=== PATIENT | male | born 1985 | race Caucasian/White ===

== ENCOUNTER 2021-12-18 00:38 | Emergency (ER) | payer OTHER, SELFPAY ==
[2021-12-18 00:40] VITALS: BP 141/91; PULSE 96; RESP 20; TEMP 36.9; O2SAT 97; BMI 28.0
--- NOTE | 2021-12-18 00:53 | ED.SKABFB ---
HPI - Skin/Abscess/Foreign Bdy General Chief complaint: Skin/Abscess/Foreign Body Stated complaint: fever, abscess Time Seen by Provider: 12/18/21 00:51 Source: patient Mode of arrival: ambulatory Limitations: no limitations History of Present Illness MD complaint: rash Onset (ago): day(s) (4) Location: LUE Severity: moderate Quality: aching Pain Consistency: constant Relieving factors: none Exacerbating factors: palpation and movement Context: IVDA Associated symptoms: chills Treatments prior to arrival: none Related Data Previous Rx's Medication Instructions Recorded cephalexin 500 mg capsule 500 mg PO TID 7 Days #21 cap 12/18/21 doxycycline monohydrate 100 mg 100 mg PO BID 7 Days #14 tab 12/18/21 tablet Allergies Allergy/AdvReac Type Severity Reaction Status Date / Time haloperidol [From Haldol] Allergy Unknown Unknown Verified 12/18/21 01:07 Review of Systems Review of Systems: Constitutional : No Fever, pos Chills ENT/Mouth : No sore throat, No Rhinorrhea Eyes: No Eye Pain, No Swelling, No Redness Cardiovascular : No Chest Pain, No SOB Respiratory : No Cough, No Sputum Gastrointestinal : No Nausea, No Vomiting, No Diarrhea, No abdominal Pain Genitourinary : No Dysuria, No Hematuria Musculoskeletal : No joint pain, No Myalgias, No Joint Swelling Skin : No Skin Lesions, positive skin rash Neuro : No Weakness, No Numbness, No Headache Psych : No Anxiety, No Depression Heme/Lymph: No Bruising, No Bleeding,No Lymphadenopathy Endocrine : No Polyuria, No Polydipsia All other systems reviewed and are negative [facility] Past Medical History Attestation statement: The following information was validated with the patient. Medical History Cellulitis Hepatitis C Opiate abuse, continuous Social History Social History (Updated 12/18/21 @ 01:11 by Marge Zacarias DO) Patient Tobacco Use Status: Current someday Tobacco user Substance Use Type: Heroin Advance Directives: No Physical Exam Vital Signs: Vital Signs: Last Vital Signs Temp 98.5 F 12/18/21 00:40 Pulse 96 12/18/21 00:40 Resp 20 12/18/21 00:40 BP 141/91 H 12/18/21 00:40 Pulse Ox 97 12/18/21 00:40 BMI result Body Mass Index 28.0 Appearance: Alert. Oriented X3. No acute distress. Eyes: Pupils equal, round and reactive to light. ENT: Pharynx normal. Neck: Normal inspection. Neck supple. CVS: Normal heart rate and rhythm. Pulses normal. Respiratory: No respiratory distress. Breath sounds normal. Abdomen: Soft and nontender. Skin: Skin warm and dry. Normal skin color. Normal skin turgor. Extremities: No lower extremity edema. LUE erythema and warmth posterior aspect no fluctuance felt no abscess noted distal NV intact, no drainage, no streaking, full ROM of elbow joint Neuro: Oriented X 3. No motor deficit. No sensory deficit. Course Course Course Narrative: no WBC count, afebrile, lactic acid negative can trial oral outpatient antibiotics MDM - Skin/Abscess/Foreign Bdy MDM Narrative Medical decision making narrative: 36 yo male with LUE cellulitis post IVDA - no signs of abscess not toxic, distal NV intact, bedside US no abscess seen, full ROM no septic joint he is not systemically toxic will obtain labs and start IV antibiotics anticipate trial at home with oral antibiotics. Lab Data Result diagrams: 12/18/21 01:50 12/18/21 01:50 Labs: Lab Results 12/18/21 12/18/21 12/18/21 Range/Units 01:50 01:50 02:11 WBC 8.7 (4.8-10.8) X10*3/uL RBC 4.94 (4.60-5.80) X10*6/uL Hgb 13.6 L (14.0-18.0) g/dl Hct 40.4 L (42.0-52.0) % MCV 81.8 (80.0-98.0) fL MCH 27.5 (27.0-33.0) pg MCHC 33.7 (31.0-36.0) g/dl RDW 12.8 (11.0-16.0) % Plt Count 329 (160-400) X10*3/uL MPV 9.1 L (9.4-12.4) fL Immature Gran % (Auto) 0.2 (0.0-0.4) % Neut % (Auto) 70.3 (45-73) % Lymph % (Auto) 19.2 L (20-40) % [place] % (Auto) 8.8 (2-11) % Eos % (Auto) 0.9 (0-4) % Baso % (Auto) 0.6 (0-2) % Lymph # (Auto) 1.7 (1.2-4.9) X10*3/uL [place] # (Auto) 0.8 (0.1-1.2) X10*3/uL Eos # (Auto) 0.1 (0.0-0.4) X10*3/uL Baso # (Auto) 0.1 (0.0-0.2) X10*3/uL Abs Immat Gran (auto) 0.02 (0.00-0.03) X10*3/uL Absolute Neuts (auto) 6.1 (2.0-8.3) x10*3/uL Absolute Nucleated RBC 0.000 (0.0-0.012) X10*3/uL Nucleated RBC % (auto) 0.0 (0.0-0.2) /100WBC Lactic Acid 1.3 (0.5-2.0) mmol/L COVID-19 (SUZANNE) Negative (Negative) COVID-19 Clin Com See Note Procedures Procedure Narrative Procedure Narrative: limited bedside ECHO - soft tissue left UE - no abscess seen scanning cellulitic area, cobblestoning noted Discharge Plan Discharge Clinical Impression: Cellulitis Qualifiers: Site of cellulitis: extremity Site of cellulitis of extremity: upper extremity Laterality: left Qualified Code(s): L03.114 - Cellulitis of left upper limb Patient Disposition: Home, Self-Care Instructions: Cellulitis (ED) Additional Instructions: return to ED for any worsening symptoms or concerns monitor for worsening redness, fevers, swelling, or any other concerns, complete all antibiotics Prescriptions: New cephalexin 500 mg capsule 500 mg PO TID 7 Days Qty: 21 0RF doxycycline monohydrate 100 mg tablet 100 mg PO BID 7 Days Qty: 14 0RF
[2021-12-18 01:57] LABS: MANUAL DIFF FLAG NO
[2021-12-18] MEDS: Piperacillin Sodium/Tazobactam 3.375 GM in 0.9 % Sodium Chloride 50 ML IV (01:57)
[2021-12-18] MEDS: oxyCODONE HCl Immed Release 5 MG TABLET 10 MG PO (01:57)
[2021-12-18 02:00] LABS: Basophils Absolute Auto 0.1 X10*3/uL (0.0-0.2); Basophils Percent Auto 0.6 % (0-2); Eosinophils Absolute Auto 0.1 X10*3/uL (0.0-0.4); Eosinophils Percent Auto 0.9 % (0-4); Hematocrit 40.4 % (42.0-52.0); Hemoglobin 13.6 g/dl (14.0-18.0); Imm Gran Abs Auto 0.02 X10*3/uL (0.00-0.03); Imm Gran Pct Auto 0.2 % (0.0-0.4); Lymphocytes Absolute Auto 1.7 X10*3/uL (1.2-4.9); Lymphocytes Percent Auto 19.2 % (20-40); Mean Corpuscular HGB Conc 33.7 g/dl (31.0-36.0); Mean Corpuscular Hemoglobin 27.5 pg (27.0-33.0); Mean Corpuscular Volume 81.8 fL (80.0-98.0); Mean Platelet Volume 9.1 fL (9.4-12.4); Monocytes Absolute Auto 0.8 X10*3/uL (0.1-1.2); Monocytes Percent Auto 8.8 % (2-11); Neutrophils Absolute Auto 6.1 x10*3/uL (2.0-8.3); Neutrophils Percent Auto 70.3 % (45-73); Platelet Count 329 X10*3/uL (160-400); Red Blood Count 4.94 X10*6/uL (4.60-5.80); Red Cell Distribution Width 12.8 % (11.0-16.0); White Blood Count 8.7 X10*3/uL (4.8-10.8)
[2021-12-18] MEDS: vancomycin HCL 1,250 MG in 0.9 % Sodium Chloride 250 ML 166.67 MG IV (02:10)
[2021-12-18 02:15] LABS: COVID-19 Test Negative (Negative)
[2021-12-18 02:30] LABS: Lactic Acid 1.3 mmol/L (0.5-2.0)
[2021-12-18 02:36] LABS: Alanine Aminotransferase 46 U/L (0-40); Albumin Level 3.8 g/dL (3.5-5.0); Alkaline Phosphatase 89 U/L (39-117); Anion Gap 14 (12-20); Aspartate Amino Transferase 34 U/L (5-37); Bilirubin Direct 0.4 mg/dL (0.0-0.5); Blood Urea Nitrogen 12 mg/dL (9-16); Calcium 9.1 mg/dL (8.4-10.2); Carbon Dioxide 23 mmol/L (22-29); Chloride 100 mmol/L (96-108); Creatinine Clr Calc Pharmacy 125.9; Estimated Glomerular Filt Rate > 60; Glucose Random 102 mg/dL (60-115); Potassium 3.8 mmol/L (3.3-5.1); Sodium 133 mmol/L (135-145); Total Protein 7.4 g/dL (6.5-8.0)
== END 2021-12-18 03:41 | disposition home or self-care (01) ==
PROVIDERS: Emergency Provider Emergency Medicine
DX: L03.114 Cellulitis of left upper limb (principal); R50.9 Fever, unspecified; R21 Rash and other nonspecific skin eruption; F11.10 Opioid abuse, uncomplicated; F17.200 Nicotine dependence, unspecified, uncomplicated; Z20.822 Contact with and (suspected) exposure to COVID-19; Z79.899 Other long term (current) drug therapy; Z71.6 Tobacco abuse counseling
CPT/HCPCS: 80048; 80076; 83605; 83735; 85025; 87040; 87635; 96365; 96366; 99282; 99284; J2543; J3370

== ENCOUNTER 2022-01-03 19:29 | Emergency (ER) | payer OTHER, SELFPAY ==
[2022-01-03 19:36] VITALS: BP 150/89; PULSE 127; O2SAT 98
--- NOTE | 2022-01-03 19:42 | ED_ITS ---
HPI - Overdose General Chief Complaint: General Medical Stated Complaint: Injected Gasoline in rt arm no SI attempt Time Seen by Provider: 01/03/22 19:42 Source: patient Mode of arrival: EMS Limitations: no limitations History of Present Illness HPI Narrative: Patient accidentally injected 25 CC of gasoline mix with heroin apparently patient was trying to inject heroin with water which was in the bottle but it wa s gasoline. Patent after injecting felt slight blurred vision for short time now back to normal felt little hot. Denies any shortness of breath or cough or syncope denies any suicidal attempt Related Data Previous Rx's Medication Instructions Recorded cephalexin 500 mg capsule 500 mg PO TID 7 days #21 caps 12/18/21 doxycycline monohydrate 100 mg 100 mg PO BID 7 days #14 tabs 12/18/21 tablet Allergies Allergy/AdvReac Type Severity Reaction Status Date / Time haloperidol [From Haldol] Allergy Unknown Unknown Verified 12/18/21 01:07 [facility] Past Medical History Medical History Cellulitis Hepatitis C Opiate abuse, continuous Social History Social History Patient Tobacco Use Status: Current someday Tobacco user Substance Use Type: Heroin Advance Directives: No Advance Directives Information Provided: No Physical Exam Vital Signs: Vital Signs: Last Vital Signs Temp 97.0 F 01/03/22 19:48 Pulse 102 H 01/03/22 19:48 Resp 18 01/03/22 19:48 BP 136/69 01/03/22 19:48 Pulse Ox 98 01/03/22 19:48 O2 Del Method 01/03/22 19:48 BMI result Body Mass Index 28.0 Appearance: Alert. Oriented X3. No acute distress. Eyes: PERRLA, No Nystagmus ENT: Pharynx normal. Oral Mucosa moist Neck: Normal inspection. Neck supple. CVS: Normal heart rate and rhythm. Pulses normal. Respiratory: No respiratory distress. Equal air entry bilateral, no wheezing/rales/rhonchi Abdomen: Soft and nontender. Bowel sounds are present, no mass palpable, no CVA tenderness Skin: Skin warm and dry. Normal skin color. Normal skin turgor. Extremities: No lower extremity edema. No calf tenderness Neuro: Oriented X 3. No motor deficit. No sensory deficit.No cerebellar signs , cranial nerves II-XII intact MDM - Overdose MDM Narrative Medical decision making narrative: 20:40 patient eloped from the ER Discharge Plan Discharge Clinical Impression: Overdose Patient Disposition: Elopement Instructions: Adult Overdose (ED) Prescriptions: No Action cephalexin 500 mg capsule 500 mg PO TID 7 Days Qty: 21 0RF doxycycline monohydrate 100 mg tablet 100 mg PO BID 7 Days Qty: 14 0RF Discharge Date/Time: 01/03/22 20:55
[2022-01-03 19:44] VITALS: BMI 28.0
[2022-01-03 19:48] VITALS: BP 136/69; PULSE 102; RESP 18; TEMP 36.1; O2SAT 98
--- NOTE | 2022-01-03 20:51 | PC.NURSE ---
Nurse saw pt walking towards the door. Pt stated he wanted to leave AMA so we started walking towards his bed to get paperwork. A door to the waiting room opened, and pt left before we could stop him. Pt A&O, denies SI/HI.
== END 2022-01-03 20:55 | disposition left against medical advice (07) ==
LOC: HO.ED 20:30
PROVIDERS: Emergency Provider Internal Medicine
DX: T14.91XA Suicide attempt, initial encounter (principal); T52.0X2A Toxic effect of petroleum products, intentional self-harm, initial encounter; T40.1X2A Poisoning by heroin, intentional self-harm, initial encounter; Y92.9 Unspecified place or not applicable; Y93.9 Activity, unspecified; Y99.9 Unspecified external cause status; F11.19 Opioid abuse with unspecified opioid-induced disorder; F17.200 Nicotine dependence, unspecified, uncomplicated; Z71.6 Tobacco abuse counseling; Z79.899 Other long term (current) drug therapy
CPT/HCPCS: 99283

== ENCOUNTER 2024-11-02 05:02 | Inpatient (IN) | payer OTHER, SELFPAY ==
[2024-11-02] VITALS (22 sets, daily range): BP systolic 93–122; BP diastolic 42–80; PULSE 34–83; RESP 11–35; TEMP 36.1–37; O2SAT 91–99; BMI 33.0
--- NOTE | ~2024-11-02 | XR_ITS ---
CLINICAL HISTORY: abd pain 1 view abdomen Comparison: None Findings: Nonobstructive bowel gas pattern. No abnormal calcifications. No acute fractures. IMPRESSION: Nonobstructive bowel gas pattern. This document has been electronically signed by: Dai Horton MD on 11/03/2024 18:09:52
--- NOTE | ~2024-11-02 | XR_ITS ---
CLINICAL HISTORY: rule out aspiration 1 view chest x-ray Comparison: None Findings: Portions of the exam are obscured by overlying material. No consolidation or effusion. Normal size heart. No acute fracture. IMPRESSION: 1. No acute findings. This document has been electronically signed by: Leobardo Andres MD on 11/02/2024 13:28:42
--- NOTE | 2024-11-02 05:10 | ED.OVERDOSE ---
HPI - Overdose General Chief Complaint: Overdose Stated Complaint: OD 8mg Narcan, uncooperative and vomiting Time Seen by Provider: 11/02/24 05:07 Source: EMS and police Mode of arrival: EMS Limitations: altered mental status History of Present Illness ED Provider: Dr. Freda Sotomayor HPI Narrative: Patient comes to the emergency room via ambulance and PD on board. Seems that earlier today, patient was using drugs and overdose. Patient's friends/bystanders gave him 8 mg of intranasal Narcan. Patient awake, vomiting, coughing, very restless and uncooperative. Unable to give any further history. We do not know patient's name at this time. Patient agitated, uncooperative, not answering any questions, at this time, patient is registered as Ramos Fuentes. Related Data Allergies Allergy/AdvReac Type Severity Reaction Status Date / Time haloperidol [From Haldol] Allergy Unknown Unknown Unverified 11/02/24 07:04 Review of Systems Review of Systems: Yes Unobtainable due to mental status PMFSH Past Medical History Medical History Cellulitis Hepatitis C Opiate abuse, continuous Social History Social History Patient Tobacco Use Status: Current someday Tobacco user Substance Use Type: Heroin Advance Directives: No Advance Directives Information Provided: No Physical Exam Vital Signs: Vital Signs: Last Vital Signs Pulse 83 11/02/24 07:03 Resp 35 H 11/02/24 07:03 BP 122/77 11/02/24 07:03 Pulse Ox 94 11/02/24 07:03 O2 Del Method Room Air 11/02/24 07:03 BMI result Body Mass Index 33.0 Const: Other: Appearance: Alert. Uncooperative, making himself vomit, not answering any questions Eyes: Pupils equal, round and reactive to light. ENT: Pharynx normal. Neck: Normal inspection. Neck supple. No lymph nodes noted. No crepitus CVS: Normal heart rate and rhythm. Pulses normal. Normal S1 and S2 Respiratory: No respiratory distress. Breath sounds normal. No Wheezing. No rales Abdomen: Vomiting, pain to palpation in abdomen. Coffee-ground emesis with blood clots present Skin: Skin warm and dry. Normal skin color. Normal skin turgor. Extremities: No lower extremity edema. No Lacerations. No Rash Neuro: Moves all extremities Psych: Uncooperative, agitated Course Course Course Narrative: Patient uncooperative, having coffee-ground emesis. For patient's safety we will have to give him IM medications including IM diazepam, Haldol and Benadryl, Zofran Patient receiving IV fluids , Protonix, octreotide. However, patient is too combative to get any lab work or inserted an IV. All of patient's labs pending Medications Administered Generic Name Dose Route Start Last Admin Trade Name Freq PRN Reason Stop Dose Admin Octreotide Acetate 500 mcg/ 501 mls @ 25.05 mls/hr 11/02/24 05:45 11/02/24 06:49 Sodium Chloride IVCONT 25 mcg/hr .Q20H JONATHAN 25.05 mls/hr Administration 25 MCG/HR Magnesium Sulfate 2 gm in 50 mls @ 25 mls/hr 11/02/24 06:37 11/02/24 06:44 Magnesium Sulfate/H2o IV 11/02/24 08:36 25 mls/hr ONCE ONE Administration Discontinued Medications Generic Name Dose Route Start Last Admin Trade Name Freq PRN Reason Stop Dose Admin Diazepam 2.5 mg 11/02/24 05:07 11/02/24 05:15 Diazepam 10 Mg/2 Ml Cartridge IM 11/02/24 05:08 2.5 mg STAT STA Administration Diazepam 2.5 mg 11/02/24 05:43 11/02/24 05:48 Diazepam 10 Mg/2 Ml Cartridge IM 11/02/24 05:44 2.5 mg STAT STA Administration Diazepam 5 mg 11/02/24 05:57 11/02/24 06:00 Diazepam 10 Mg/2 Ml Cartridge IM 11/02/24 05:58 5 mg STAT STA Administration Diphenhydramine HCl 50 mg 11/02/24 05:07 11/02/24 05:15 Diphenhydramine Hcl 50 Mg/Ml Vial IM 11/02/24 05:08 50 mg ONCE ONE Administration Haloperidol Lactate 5 mg 11/02/24 05:07 11/02/24 05:14 Haloperidol Lactate 5 Mg/Ml Vial IM 11/02/24 05:08 5 mg STAT STA Administration Sodium Chloride 1,000 mls @ 999 mls/hr 11/02/24 05:20 11/02/24 06:41 Ns IVCONT 11/02/24 06:20 999 mls/hr .Q1H1M ONE Administration Ketamine HCl 380 mg 11/02/24 06:10 11/02/24 06:18 Ketamine Hcl 500 Mg/5 Ml Vial IM 11/02/24 06:11 380 mg ONCE ONE Administration Octreotide Acetate 50 mcg 11/02/24 05:45 11/02/24 06:45 Octreotide Acetate 100 Mcg/Ml Ampul IVPUSH 11/02/24 05:46 50 mcg ONCE ONE Administration Olanzapine 10 mg 11/02/24 05:43 11/02/24 05:48 Olanzapine 10 Mg Vial IM 11/02/24 05:44 10 mg STAT STA Administration Ondansetron HCl 4 mg 11/02/24 05:07 11/02/24 05:16 Ondansetron Hcl 4 Mg/2 Ml Vial IM 11/02/24 05:08 4 mg ONCE ONE Administration Pantoprazole Sodium 80 mg 11/02/24 05:20 11/02/24 06:43 Pantoprazole Sodium 40 Mg/10 Ml Vial IVPUSH 11/02/24 05:21 80 mg ONCE ONE Administration Ziprasidone 20 mg 11/02/24 05:27 11/02/24 05:34 Ziprasidone Mesylate 20 Mg Vial IM 11/02/24 05:28 20 mg ONCE ONE Administration Medical Decision Making Medical Decision Making MDM Narrative: Patient is very agitated. Initially patient was given diazepam IM 2.5 mg, diphenhydramine, Haldol. That did not work. Eventually patient got Zyprexa, patient is still very agitated, then patient got IM olanzapine. Patient still agitated. Patient got a 2nd dose of diazepam this time 5 mg. Patient continues being agitated, uncooperative. We have not been able to draw any labs come patient keeps throwing kicks and punches. We will IM the patient with ketamine 4 milligrams/kilogram. I If the patient continues being this agitated, he may need Precedex and may have to be admitted to ICU. After IM ketamine, 4 milligrams/kilogram, patient continues being very agitated, very difficult to put a line on him and get labs due to severe agitation despite getting all the above-mentioned medications. Patient confused, throwing punches, and trying to kick, overall aggressive Patient was started on Precedex. Patient's hemoglobin and hematocrit at baseline. Chemistry hemolyzed, repeat labs pending. Gastric occult blood positive, ETOH level pending, urinalysis and U tox pending. I discussed the patient with Dr. Dan from the ICU, patient being admitted At this time, 07:25, patient's vitals are stable, BP 115/80, HR 70 to 80, O2 saturation 95% on RA Still thrashing but much more calm Differential Diagnosis Differential Diagnoses: The differential diagnosis associated with the presentation includes (Boerhaave syndrome, alcohol gastritis, peptic ulcer disease, polysubstance abuse) Admission/Observation Consideration of admission/observation: Escalation of care including admission/observation considered (Patient is too agitated, patient has received a large amount of medical received medications since the patient's severe agitation, patient will likely need admission) Consult Healthcare Provider Management of the patient was discussed with: [employer] Lab Data MDM Lab Attestation statement: I reviewed the patient's lab results. 11/02/24 06:28 11/02/24 06:28 Labs: Lab Results 11/02/24 11/02/24 Range/Units 05:33 06:28 WBC 7.0 (4.8-10.8) X10*3/uL RBC 4.88 (4.60-5.80) X10*6/uL Hgb 13.8 L (14.0-18.0) g/dl Hct 39.5 L (42.0-52.0) % MCV 80.9 (80.0-98.0) fL MCH 28.3 (27.0-33.0) pg MCHC 34.9 (31.0-36.0) g/dl RDW 13.9 (11.0-16.0) % Plt Count 198 D (160-400) X10*3/uL MPV 9.6 (9.4-12.4) fL Immature Gran % (Auto) 0.3 (0.0-0.4) % Neut % (Auto) 69.1 (45-73) % Lymph % (Auto) 20.1 (20-40) % [place] % (Auto) 9.0 (2-11) % Eos % (Auto) 1.1 (0-4) % Baso % (Auto) 0.4 (0-2) % Lymph # (Auto) 1.4 (1.2-4.9) X10*3/uL [place] # (Auto) 0.6 (0.1-1.2) X10*3/uL Eos # (Auto) 0.1 (0.0-0.4) X10*3/uL Baso # (Auto) 0.0 (0.0-0.2) X10*3/uL Abs Immat Gran (auto) 0.02 (0.00-0.03) X10*3/uL Absolute Neuts (auto) 4.8 (2.0-8.3) x10*3/uL Absolute Nucleated RBC 0.000 (0.0-0.012) X10*3/uL Nucleated RBC % (auto) 0.0 (0.0-0.2) /100WBC Gastric Occult Blood POSITIVE (NEG) Critical Care Time Critical Care Time Critical Care Time: Yes Total Critical Care Time: 120 Attestation: I have personally provided critical care time. Time includes review of lab data, radiology results, discussion with consultants, and monitoring for potential decompensation. Intervention performed as documented. Discharge Plan Discharge Clinical Impression: Drug overdose, Agitation, Acute GI bleeding Patient Disposition: Admitted As Inpatient Print Language: Eritrean
[2024-11-02] MEDS: Haloperidol Lactate 5 MG/ML VIAL IM (05:14)
[2024-11-02] MEDS: diphenhydrAMINE HCL 50 MG/ML VIAL IM (05:15)
[2024-11-02] MEDS: diazePAM 10 MG/2 ML CARTRIDGE 2.5 MG IM ×2 (05:15→05:48)
[2024-11-02] MEDS: ondansetron HCL 4 MG/2 ML VIAL IM (05:16)
[2024-11-02] MEDS: Ziprasidone Mesylate 20 MG VIAL IM (05:34)
[2024-11-02 05:39] LABS: GASOB Int Neg Ctl Valid YES; GASOB Int Pos Ctl Valid YES; GASOB Lot 20632 10; Occult Blood Gastric POSITIVE (NEG)
[2024-11-02] MEDS: OLANZapine 10 MG VIAL IM (05:48)
[2024-11-02] MEDS: diazePAM 10 MG/2 ML CARTRIDGE 5 MG IM (06:00)
[2024-11-02] MEDS: Ketamine HCl 500 MG/5 ML VIAL 380 MG IM (06:18)
[2024-11-02 06:34] LABS: MANUAL DIFF FLAG NO
[2024-11-02 06:35] LABS: Basophils Percent Auto 0.4 % (0-2); Eosinophils Absolute Auto 0.1 X10*3/uL (0.0-0.4); Eosinophils Percent Auto 1.1 % (0-4); Hematocrit 39.5 % (42.0-52.0); Hemoglobin 13.8 g/dl (14.0-18.0); Imm Gran Abs Auto 0.02 X10*3/uL (0.00-0.03); Imm Gran Pct Auto 0.3 % (0.0-0.4); Lymphocytes Absolute Auto 1.4 X10*3/uL (1.2-4.9); Lymphocytes Percent Auto 20.1 % (20-40); Mean Corpuscular HGB Conc 34.9 g/dl (31.0-36.0); Mean Corpuscular Hemoglobin 28.3 pg (27.0-33.0); Mean Corpuscular Volume 80.9 fL (80.0-98.0); Mean Platelet Volume 9.6 fL (9.4-12.4); Monocytes Absolute Auto 0.6 X10*3/uL (0.1-1.2); Neutrophils Absolute Auto 4.8 x10*3/uL (2.0-8.3); Neutrophils Percent Auto 69.1 % (45-73); Platelet Count 198 X10*3/uL (160-400); Red Blood Count 4.88 X10*6/uL (4.60-5.80); Red Cell Distribution Width 13.9 % (11.0-16.0)
[2024-11-02] MEDS: 0.9 % Sodium Chloride 1,000 ML 999 ML IVCONT (06:41)
[2024-11-02] MEDS: Pantoprazole Sodium 40 MG/10 ML VIAL 80 MG IVPUSH (06:43)
[2024-11-02] MEDS: Magnesium Sulfate/H2O 2 GM/50 ML PIGGYBACK IV (06:44)
[2024-11-02] MEDS: Octreotide Acetate 100 MCG/ML AMPUL 50 MCG IVPUSH (06:45)
[2024-11-02] MEDS: Octreotide Acetate 500 MCG in 0.9 % Sodium Chloride 500 ML 25.05 MCG IVCONT (06:49)
[2024-11-02] MEDS: DEXMEDETOMIDINE IVCONT ×2 (07:15→10:17)
[2024-11-02] MEDS: SODIUM CHLORIDE IVCONT ×2 (07:15→10:17)
--- NOTE | 2024-11-02 07:29 | PC.NURSE ---
Pt LAURA, per EMS friend called pt OD on 3 bags of heroin, friend administered 8mg of intranasal narcan. During transport to hospital pt was uncooperative, agitated, and inducing vomiting. Upon arrival pt was awake, inducing vomiting, very restless, not responding appropriately to questions, and interfering with attempted care. Pt vomiting coffee brown to bright red emesis. Pt changed over with security and belonging searched, found needles, heroin, and weed in his belongings. Pt received chemical restraint, multiple medications per SEP. Pt continued to be combative, thrashing in bed, spitting, inducing vomit, and verbally assaulting staff. Pt has 22g IV in left foot and ultrasound guided IV in left arm. Pt has been medicated per SEP.
--- NOTE | 2024-11-02 07:34 | PC.NURSE ---
this nurse began assisting with patient care at 7am,took over patient care at 715 am, began precedex infusion at aprox 715 am at 1mcg/kg/hr, unable to scan the med in the SEP, called pharmacy who is working on the problem. The medication was verified with the charge nurse Clari. pts vitals continue to be stable, ivf running as ordered, 1:1 sitter at bedside, seizure precautions placed only because the patient is rolling around in the bed to prevent injury. residential monitor intact nsr on monitor with intermittent pauses- Dr. Sotomayor is aware. call rodríguez within reach, plan of care ongoing.
[2024-11-02 08:58] LABS: Creatinine Clr Calc Pharmacy 135.6; Estimated Glomerular Filt Rate > 60; Phosphorus 3.8 mg/dL (2.7-4.5)
--- NOTE | 2024-11-02 08:58 | PC.NURSE ---
pt iv infiltrated,dr. hoskins notified and he inserted an US guided IV to left AC. IV medications were changed over to this site. pt vitals continue to be stable, capnography was added which was noted to be 33, cardiac surgeon is sinus kevin 50s with intermitent pauses- provider aware. report called to ICU. room ready pt awaiting jonah to transport
[2024-11-02 09:03] LABS: Alanine Aminotransferase 80 U/L (0-40); Albumin Level 4.1 g/dL (3.5-5.0); Alkaline Phosphatase 70 U/L (39-117); Aspartate Amino Transferase 96 U/L (5-37); Bilirubin Direct 0.3 mg/dL (0.0-0.5); Bilirubin Total 0.7 mg/dL (0.0-1.0); Blood Urea Nitrogen 11 mg/dL (9-16); Calcium 8.7 mg/dL (8.4-10.2); Creatinine Clr Calc Pharmacy 137.2; Estimated Glomerular Filt Rate > 60; Ethanol < 10 mg/dL; Glucose Random 100 mg/dL (60-115); Total Protein 7.3 g/dL (6.5-8.0)
[2024-11-02 09:23] LABS: Anion Gap 16 (12-20); Carbon Dioxide 22 mmol/L (22-29); Chloride 107 mmol/L (96-108); Potassium 3.8 mmol/L (3.3-5.1); Sodium 141 mmol/L (135-145)
--- NOTE | 2024-11-02 09:30 | PHA.MEDREC ---
Addendum entered by Med Lovell 11/02/24 09:36: Pt also reportedly gets methadone at undisclosed [facility] per pt's friend Toma. Original Note: Pharmacy Consult ? Medication Reconciliation Pharmacy has completed the medication reconciliation. Spoke to pt's friend Toma to confirm some medications. Clonidine, methocarbamol, nicotine, and oxybutynin are unable to be confirmed at this time because [facility] is not open during the weekend. Will have to follow up at later date to confirm the aforementioned meds. Pt is currently sedated and cannot be interviewed.
--- NOTE | 2024-11-02 09:46 | PM.CCHP ---
History of Present Illness Date of Service: 11/02/24 Chief Complaint: Altered sensorium History is limited as patient is poorly responsive. 39-year-old male with past medical history of IV drug abuse, delusional disorder was found unresponsive by the bystanders so EMS was called. After receiving Narcan patient became extremely agitated in the ED, for which he got Haldol, Benadryl, diazepam and Zyprexa without much control and symptoms so later started on Precedex drip and MICU was consulted. There is also a questionable history of hematemesis. Symptoms are acute in onset, progressive, worsened with Narcan, improved with Precedex. Review of Systems Review of Systems: Unable to obtain as patient is unresponsive PMFSH Past Medical History Medical History Cellulitis Hepatitis C Opiate abuse, continuous Social History Social History Patient Tobacco Use Status: Current someday Tobacco user Substance Use Type: Heroin Advance Directives: No Advance Directives Information Provided: No Meds Allergies Allergy/AdvReac Type Severity Reaction Status Date / Time haloperidol [From Haldol] Allergy Unknown Unknown Unverified 11/02/24 07:04 Active Medications: Current Medications Diazepam (Diazepam 10 Mg/2 Ml Cartridge) 5 mg IM Q6H PRN PRN Reason: agitation Dexmedetomidine HCl (Precedex) 400 mcg in 100 mls @ 0 mls/hr IVCONT .Q0M [facility]; Protocol Last Admin: 11/02/24 07:15 Dose: 1 mcg/kg/hr, 24.63 mls/hr Olanzapine (Olanzapine 10 Mg Vial) 10 mg IM DAILY PRN PRN Reason: agitation Ondansetron HCl (Ondansetron Hcl 4 Mg/2 Ml Vial) 4 mg IVPUSH Q8H PRN PRN Reason: Nausea and Vomiting Pantoprazole Sodium (Pantoprazole Sodium 40 Mg/10 Ml Vial) 40 mg IVPUSH BID@0630,1630 [facility] Home Medications ?Medication ?Instructions ?Recorded ?Confirmed ?Last Taken ?Type clonazepam 2 mg tablet 1 mg PO BID PRN Anxiety 11/02/24 11/02/24 Unknown History clonidine HCl 0.1 mg tablet 0.1 mg PO QID 11/02/24 Unknown History docusate sodium 100 mg capsule 100 mg PO BID PRN Constipation 11/02/24 11/02/24 Unknown History gabapentin 800 mg tablet 800 mg PO QID 11/02/24 11/02/24 Unknown History hydroxyzine pamoate 25 mg capsule 25 mg PO Q6H PRN Anxiety 11/02/24 11/02/24 Unknown History ibuprofen 400 mg tablet 400 mg PO Q6H PRN Pain 11/02/24 11/02/24 Unknown History methocarbamol 500 mg tablet 500 mg PO QID PRN Spasms 11/02/24 Unknown History nicotine (polacrilex) 2 mg gum 2 mg buccal Q4H PRN Nicotine 11/02/24 Unknown History Cravings nicotine 14 mg/24 hr daily 1 patch topical DAILY PRN Nicotine 11/02/24 Unknown History transdermal patch Cravings ondansetron 4 mg disintegrating 4 mg PO Q8H PRN Nausea And Vomiting 11/02/24 11/02/24 Unknown History tablet oxybutynin chloride 5 mg tablet 5 mg PO BID 11/02/24 Unknown History polyethylene glycol 3350 17 17 g PO DAILY PRN Constipation 11/02/24 11/02/24 Unknown History gram/dose oral powder (Miralax) Physical Exam Vital Signs: Vital Signs: Last Vital Signs Pulse 50 11/02/24 08:46 Resp 22 H 11/02/24 08:46 BP 101/52 L 11/02/24 08:46 Pulse Ox 97 11/02/24 08:46 O2 Del Method Nasal Cannula 11/02/24 08:46 O2 Flow Rate 3 11/02/24 08:46 BMI result Body Mass Index 33.0 General: Young male agitated lying in the bed Nutritional Appearance: well nourished and overweight Eyes: appearance normal, both eyes and all related structures; Alignment and Position: alignment normal and position normal Neck: No lymphadenopathy, no thyromegaly Resp: bilateral air entry equal, occasional added sounds present Cardio: Regular rate, regular rhythm; Heart sounds: S1 normal heart sound present and S2 normal heart sound present GI: soft, nontender, no guarding, no hepatosplenomegaly : bladder normal to inspection, bladder normal to palpation, no renal angle tenderness Skin: no rashes or lesions noted and elasticity normal Neuro: Drowsy, confused, protecting airway, moves all extremities on painful stimuli Results Labs 11/02/24 06:28 11/02/24 08:40 Labs: Laboratory Results - last 24 hr 11/02/24 11/02/24 11/02/24 05:33 06:28 08:40 MCV 80.9 MCH 28.3 MCHC 34.9 RDW 13.9 Plt Count 198 D MPV 9.6 Immature Gran % (Auto) 0.3 Neut % (Auto) 69.1 Lymph % (Auto) 20.1 [place] % (Auto) 9.0 Eos % (Auto) 1.1 Baso % (Auto) 0.4 Lymph # (Auto) 1.4 [place] # (Auto) 0.6 Eos # (Auto) 0.1 Baso # (Auto) 0.0 Abs Immat Gran (auto) 0.02 Absolute Neuts (auto) 4.8 Absolute Nucleated RBC 0.000 Nucleated RBC % (auto) 0.0 Anion Gap 16 Estim Creat Clear Calc 137.2 Estimated GFR Random Glucose Calcium Phosphorus Total Bilirubin Direct Bilirubin AST ALT Alkaline Phosphatase Total Protein Albumin Gastric Occult Blood POSITIVE Ethyl Alcohol 11/02/24 11/02/24 08:40 08:40 MCV MCH MCHC RDW Plt Count MPV Immature Gran % (Auto) Neut % (Auto) Lymph % (Auto) [place] % (Auto) Eos % (Auto) Baso % (Auto) Lymph # (Auto) [place] # (Auto) Eos # (Auto) Baso # (Auto) Abs Immat Gran (auto) Absolute Neuts (auto) Absolute Nucleated RBC Nucleated RBC % (auto) Anion Gap Estim Creat Clear Calc 135.6 Estimated GFR > 60 > 60 Random Glucose 100 Calcium 8.7 Phosphorus 3.8 Total Bilirubin 0.7 Direct Bilirubin 0.3 AST 96 H ALT 80 H Alkaline Phosphatase 70 Total Protein 7.3 Albumin 4.1 Gastric Occult Blood Ethyl Alcohol < 10 Assessment and Plan (1) Delusional disorder: Status: Acute (2) Agitation: Status: Acute (3) Active substance abuse: Status: Acute (4) Acute GI bleeding: Status: Acute (5) Drug overdose: Status: Acute Plan Acute encephalopathy: Secondary to drug abuse, alcohol levels negative, urine drug screen pending Initial response to Narcan but leading to agitation, currently placed on Precedex drip Questionable upper GI bleed: We will start the patient on pantoprazole IV 40 mg b.i.d. We will repeat hemoglobin Allergic reaction: Patient had allergic reaction to Haldol in the ED, treated with Benadryl We will hold off on steroids currently unless symptoms were since due to risk for worsening encephalopathy Transaminitis: We will get hepatitis panel Prophylaxis: SCD, pantoprazole
[2024-11-02] MEDS: Pantoprazole Sodium 40 MG/10 ML VIAL IVPUSH ×2 (10:12→16:53)
[2024-11-02] MEDS: Nicotine 14 MG PATCH.TD24 TRANSDERMA (10:12)
[2024-11-02] MEDS: LACTATED RINGERS 1000 ML IV (11:50)
[2024-11-02 11:57] LABS: Hematocrit 37.5 % (42.0-52.0); Hemoglobin 12.7 g/dl (14.0-18.0); Mean Corpuscular HGB Conc 33.9 g/dl (31.0-36.0); Mean Corpuscular Hemoglobin 27.7 pg (27.0-33.0); Mean Corpuscular Volume 81.7 fL (80.0-98.0); Mean Platelet Volume 9.5 fL (9.4-12.4); Platelet Count 203 X10*3/uL (160-400); Red Blood Count 4.59 X10*6/uL (4.60-5.80); Red Cell Distribution Width 14.3 % (11.0-16.0); White Blood Count 4.9 X10*3/uL (4.8-10.8)
[2024-11-02 13:54] LABS: HBS Num1 > 1000.00 mIU/mL (0-7.99); HBc Num1 0.08 S/CO (0.00-0.79); HBsAGNum1 0.33 S/CO (0.00-0.99); Hepatitis B Core Antibody Nonreactive (Nonreactive); Hepatitis B Surface Antigen Negative (Negative); ~HepC Num1 13.92 S/CO (0.00-0.79); ~Hepatitis B Surface Antibody REACTIVE (Nonreactive); ~Hepatitis C Antibody Reactive (Nonreactive)
--- NOTE | 2024-11-02 16:33 | MHC.CM.PN ---
CM ATTEMPTED TO MEET W/PT W/DRUG OVERDOSE AND AGITATION AFTER NARCAN, PT OFF PRECEDEX DRIP HOWEVER SOUNDLY SLEEPING, CM TO REVISIT IN AM.
--- NOTE | 2024-11-02 17:49 | ECG_ITS ---
Test Reason : Bradycardia Blood Pressure : */* mmHG Vent. Rate : 71 BPM Atrial Rate : 90 BPM P-R Int : 154 ms QRS Dur : 90 ms QT Int : 518 ms P-R-T Axes : 65 60 59 degrees QTcB Int : 562 ms Sinus rhythm with marked sinus arrhythmia Prolonged QT Abnormal ECG When compared with ECG of 09-Jul-2022 20:48, Sinus rhythm has replaced Ectopic atrial rhythm Vent. rate has increased by 23 bpm Questionable change in QRS axis Nonspecific T wave abnormality no longer evident in Inferior leads T wave inversion less evident in Anterior leads QT has lengthened Referred By: Keith Dan Electronically Signed By: FELIBERTO CHAO MD
--- NOTE | 2024-11-02 19:03 | PC.NURSE ---
Assumed care @ 0700? Neuro: Alert, Oriented to self, follows simple commands, AMBROSIO spontaneously, intermittent Restlessness requiring frequent redirection, 1:1 sitter at bedside.? On precedex gtt per SEP. Ketamine gtt paused per SEP. Resp: Transition from Bipap to HFNC? Cardiac: SR, levophed gtt paused per SEP,? MAP goal >65. Laxis IVP per SEP.? GI: LBM? 11/02 , +bowel sounds, NPO, failed nursing bedside swallowing, speech eval consult ordered, POC Q6hr, on sliding scale insulin per SEP. . : Male purewick in place.? Skin: ?Impaired skin integrity - see skin assessment (repositioning maintained)? Infectious: IV antibiotics? Lines: peripheral IVs OOB to recliner for approx.? 4hour , 2-3 assist with Moni steady
--- NOTE | 2024-11-02 19:06 | PC.NURSE ---
Patient arrived at the ICU approx. at? 0920 from ED.? Neuro: on initial assessment sedated, responded to painful stimuli. Now alert and oriented x3. Precedex gtt paused approx. ? at 1200.? Respiratory:arrived on 2L NC now on RA. Cardiac: Sinus Bradicardia, HR down to high 30s occasionally. Dr. Dan aware of the above vitals. EKG performed.? GI/: unknown LBM, bowel sounds, NPO, utilizing urinal.? Skin: Generalize rash Dr. Dan made aware? Lines: peripheral IVs LR 3L bolus given per SEP.?
[2024-11-02 19:31] LABS: Amphetamine Screen Urine Not Detected (Not Detect); Barbiturates, Urine Not Detected (Not Detect); Benzodiazepines Screen Urine POSITIVE (Not Detect); Buprenorphine Scr Not Detected (Not Detect); Cannabinoid Screen Urine POSITIVE (Not Detect); Cocaine Screen Urine POSITIVE (Not Detect); Fentanyl, urine POSITIVE (Not Detect); Methadone Screen, Urine Positive (Not Detect); Opiate Screen Urine POSITIVE (Not Detect); Oxycodone Screen Urine Not Detected (Not Detect); Phencyclidine Screen Urine Not Detected (Not Detect)
[2024-11-02] MEDS: Metoclopramide HCl 10 MG/2 ML VIAL IVPUSH (20:32)
--- NOTE | 2024-11-02 20:57 | PC.NURSE ---
This RN called and spoke with ABEBE Clinton at [facility] on [facility] in [facility] to confirm patient is enrolled in the Methadone Clinic there. Per Clara, methadone dose is 70mg, and the last dose given was 10/28/24. . Methadone Verification Form filled out by this RN and faxed to Pharmacy. SRAVAN abreu.
[2024-11-02 21:21] LABS: Lipase 25 U/L (8-78)
[2024-11-02 21:37] LABS: TSH reflex Free T4 0.53 uIU/mL (0.32-4.0)
[2024-11-02 23:40] LABS: Hematocrit 36.5 % (42.0-52.0); Hemoglobin 12.2 g/dl (14.0-18.0)
[2024-11-03] VITALS (15 sets, daily range): BP systolic 96–158; BP diastolic 57–76; PULSE 37–62; RESP 11–18; TEMP 36.4–37.2; O2SAT 92–99; BMI 33.0
--- NOTE | 2024-11-03 | ECG_ITS ---
Test Reason : tachycardia Blood Pressure : */* mmHG Vent. Rate : 45 BPM Atrial Rate : 67 BPM P-R Int : * ms QRS Dur : 84 ms QT Int : 532 ms P-R-T Axes : 50 56 57 degrees QTcB Int : 460 ms Sinus rhythm Sinus Arrhythmia Junctional beats Abnormal ECG When compared with ECG of 02-Nov-2024 06:34, T wave inversion no longer evident in Anterior leads QT has shortened Referred By: Dilia Gomez Electronically Signed By: HENRY ALONSO
[2024-11-03 05:44] LABS: MANUAL DIFF FLAG NO
[2024-11-03 05:46] LABS: Basophils Percent Auto 0.8 % (0-2); Eosinophils Absolute Auto 0.2 X10*3/uL (0.0-0.4); Hematocrit 36.3 % (42.0-52.0); Hemoglobin 12.2 g/dl (14.0-18.0); Lymphocytes Absolute Auto 2.2 X10*3/uL (1.2-4.9); Lymphocytes Percent Auto 44.5 % (20-40); Mean Corpuscular HGB Conc 33.6 g/dl (31.0-36.0); Mean Corpuscular Hemoglobin 27.9 pg (27.0-33.0); Mean Corpuscular Volume 83.1 fL (80.0-98.0); Mean Platelet Volume 9.4 fL (9.4-12.4); Monocytes Absolute Auto 0.6 X10*3/uL (0.1-1.2); Neutrophils Percent Auto 40.7 % (45-73); Platelet Count 188 X10*3/uL (160-400); Red Blood Count 4.37 X10*6/uL (4.60-5.80); Red Cell Distribution Width 14.4 % (11.0-16.0)
[2024-11-03 06:03] LABS: Alanine Aminotransferase 58 U/L (0-40); Albumin Level 3.1 g/dL (3.5-5.0); Anion Gap 11 (12-20); Aspartate Amino Transferase 67 U/L (5-37); Bilirubin Total 0.6 mg/dL (0.0-1.0); Blood Urea Nitrogen 12 mg/dL (9-16); Carbon Dioxide 23 mmol/L (22-29); Chloride 112 mmol/L (96-108); Creatinine Clr Calc Pharmacy 158.2; Estimated Glomerular Filt Rate > 60; Glucose Random 97 mg/dL (60-115); Magnesium 2.2 mg/dL (1.6-2.6); Potassium 3.5 mmol/L (3.3-5.1); Sodium 142 mmol/L (135-145); Total Protein 5.9 g/dL (6.5-8.0)
[2024-11-03 06:08] LABS: Alkaline Phosphatase 54 U/L (39-117)
[2024-11-03] MEDS: Pantoprazole Sodium 40 MG/10 ML VIAL IVPUSH ×2 (06:59→16:34)
[2024-11-03] MEDS: 0.9 % Sodium Chloride Flush 3 ML SYRINGE IVFLUSH (08:38)
[2024-11-03] MEDS: Nicotine 14 MG PATCH.TD24 TRANSDERMA (10:22)
--- NOTE | 2024-11-03 10:36 | PM.CCPN ---
Subjective Subjective Date of Service: 11/03/24 Interval History: Mental status much improved today, alert oriented and following commands Critical Care Time (minutes): 35 Physical Exam Vital Signs: Vital Signs: Last Vital Signs Temp 97.7 F 11/03/24 08:00 Pulse 37 L 11/03/24 10:00 Resp 12 11/03/24 10:00 BP 110/68 11/03/24 10:00 Pulse Ox 97 11/03/24 10:00 O2 Del Method Room Air 11/03/24 10:00 O2 Flow Rate 3 11/02/24 08:46 BMI result Body Mass Index 33.0 General: Middle-aged male sleeping in the bed comfortably Nutritional Appearance: well nourished and overweight Eyes: appearance normal, both eyes and all related structures; Alignment and Position: alignment normal and position normal Neck: No lymphadenopathy, no thyromegaly Resp: bilateral air entry equal, occasional added sounds present Cardio: Regular rate, regular rhythm; Heart sounds: S1 normal heart sound present and S2 normal heart sound present GI: soft, epigastric tenderness present, no guarding, no hepatosplenomegaly : bladder normal to inspection, bladder normal to palpation, no renal angle tenderness Skin: no rashes or lesions noted and elasticity normal Neuro: oriented to person, oriented to place, oriented to time and moves all extremities Objective Data Labs 11/03/24 05:39 11/03/24 05:39 Labs: Laboratory Results - last 24 hr 11/02/24 11/02/24 11/02/24 08:40 11:45 18:25 WBC 4.9 RBC 4.59 L Hgb 12.7 L Hct 37.5 L MCV 81.7 MCH 27.7 MCHC 33.9 RDW 14.3 Plt Count 203 MPV 9.5 Immature Gran % (Auto) Neut % (Auto) Lymph % (Auto) [place] % (Auto) Eos % (Auto) Baso % (Auto) Lymph # (Auto) [place] # (Auto) Eos # (Auto) Baso # (Auto) Abs Immat Gran (auto) Absolute Neuts (auto) Absolute Nucleated RBC 0.000 Nucleated RBC % (auto) 0.0 Sodium Potassium Chloride Carbon Dioxide Anion Gap BUN Creatinine Estim Creat Clear Calc Estimated GFR Random Glucose Calcium Magnesium Total Bilirubin AST ALT Alkaline Phosphatase Total Protein Albumin Lipase 25 TSH 0.53 Urine Opiates Screen POSITIVE H Ur Buprenorphine Scrn Not Detected Ur Oxycodone Screen Not Detected Urine Methadone Screen Positive H Urine Fentanyl Screen POSITIVE H Ur Barbiturates Screen Not Detected Ur Phencyclidine Scrn Not Detected Ur Amphetamines Screen Not Detected U Benzodiazepines Scrn POSITIVE H Urine Cocaine Screen POSITIVE H U Marijuana (THC) Screen POSITIVE H Hep Bs Antigen Negative Hep Bs Antibody REACTIVE Hep B Core Total Ab Nonreactive Hepatitis C Ab (EIA) Reactive H 11/02/24 11/03/24 23:32 05:39 WBC 5.0 RBC 4.37 L Hgb 12.2 L 12.2 L Hct 36.5 L 36.3 L MCV 83.1 MCH 27.9 MCHC 33.6 RDW 14.4 Plt Count 188 MPV 9.4 Immature Gran % (Auto) 0.0 Neut % (Auto) 40.7 L Lymph % (Auto) 44.5 H [place] % (Auto) 11.0 Eos % (Auto) 3.0 Baso % (Auto) 0.8 Lymph # (Auto) 2.2 [place] # (Auto) 0.6 Eos # (Auto) 0.2 Baso # (Auto) 0.0 Abs Immat Gran (auto) 0.00 Absolute Neuts (auto) 2.0 Absolute Nucleated RBC 0.000 Nucleated RBC % (auto) 0.0 Sodium 142 Potassium 3.5 Chloride 112 H Carbon Dioxide 23 Anion Gap 11 L BUN 12 Creatinine 0.72 Estim Creat Clear Calc 158.2 Estimated GFR > 60 Random Glucose 97 Calcium 8.0 L D Magnesium 2.2 Total Bilirubin 0.6 AST 67 H ALT 58 H Alkaline Phosphatase 54 Total Protein 5.9 L Albumin 3.1 L Lipase TSH Urine Opiates Screen Ur Buprenorphine Scrn Ur Oxycodone Screen Urine Methadone Screen Urine Fentanyl Screen Ur Barbiturates Screen Ur Phencyclidine Scrn Ur Amphetamines Screen U Benzodiazepines Scrn Urine Cocaine Screen U Marijuana (THC) Screen Hep Bs Antigen Hep Bs Antibody Hep B Core Total Ab Hepatitis C Ab (EIA) Progress Note: A&P Assessment and plan (1) Delusional disorder: Status: Acute (2) Agitation: Status: Acute (3) Active substance abuse: Status: Acute (4) Acute GI bleeding: Status: Acute Plan Acute encephalopathy: Secondary to drug abuse, alcohol levels negative, urine drug screen positive for fentanyl, opiates, methadone, cocaine, marijuana Off Precedex drip, comfortable lying in the bed Questionable upper GI bleed: Possibly due to gastritis as patient had some bilious vomiting this morning Continue pantoprazole IV 40 mg b.i.d, on p.r.n. Zofran. Hemoglobin stable Allergic reaction: Patient had allergic reaction to Haldol in the ED, treated with Benadryl Transaminitis: Hepatitis-C antibodies positive, we will ask the patient if he has had any vaccines Need to be followed up outpatient clinic for treatment if it did not have any vaccines Prophylaxis: SCD, pantoprazole Quality Stroke Does the patient have a stroke diagnosis?: No VTE Prior VTE?: No VTE Risk Level:: Medical - low VTE Device Contraindication: N/A - Device Ordered VTE Drug Contraindication: N/A - Med Ordered
[2024-11-03] MEDS: ondansetron HCL 4 MG/2 ML VIAL IVPUSH ×2 (10:42→16:38)
[2024-11-03] MEDS: methADONE HCl 20 MG/2 ML ORAL.CONC 70 MG PO (10:42)
--- NOTE | 2024-11-03 11:28 | MHC.CM.PN ---
EMR REVIEWED, PT S/P DRUG OD, CM MET W/PT HOWEVER PT WAS NAUSEOUS AND BEGAN VOMITING SO CM ASSESSMENT CUT SHORT, PT REPORTS HE IS HOMELESS, NO DME, HAS [facility] FOR M[facility]. PT CURRENTLY DECLINES SNF/RESPITE PLACEMENT, AT THIS POINT PT WAS UNABLE TO ANSWER ANY OTHER QUESTIONS AND BEGAN VOMITING, NSG/HAND CANDY DIPPER AWARE. PT WILL NEED ASSIST W/TRANSPORT, LIKELY BUS PASS/LYFT D/T [facility] AREA.
[2024-11-03] MEDS: Sucralfate Oral Suspension 1 GM/10 ML ORAL.SUSP PO ×2 (11:48→16:34)
--- NOTE | 2024-11-03 12:33 | PC.NURSE ---
Care assumed @ 0700? Neuro/Resp: ?alert and oriented x3. Clear lung sounds on RA Cardiac: Sinus Bradicardia, HR down to high 30s occasionally. Dr. Dan aware of the above vitals. Pacer pads at bedside. GI/: unknown LBM, + bowel sounds, abd pain, N/V, zofran and sulcrafate given per MAR. Dr. Dan made aware, utilizing urinal.? Skin: Generalize rash Dr. Dan made aware? Lines: peripheral IVs Transfer to [facility].No longer requiring ICU-level care.
[2024-11-03] MEDS: Bismuth Subsalicylate 262 MG TABLET PO (13:28)
[2024-11-03] MEDS: Lactated Ringers 1,000 ML 100 ML IVCONT (13:31)
[2024-11-03 13:46] LABS: Lipase 41 U/L (8-78)
[2024-11-03] MEDS: Potassium Chloride/H20 10 MEQ/100 ML PIGGYBACK 100 MEQ IV ×4 (14:28→18:45)
[2024-11-03] MEDS: diazePAM 10 MG/2 ML CARTRIDGE 5 MG IM ×2 (14:36→20:57)
[2024-11-03] MEDS: Lidocaine 4 % Patch ADH..PATCH 1 PATCH TRANSDERMA (14:43)
[2024-11-03] MEDS: Bismuth Subsalicylate Liquid 524 MG/30 ML ORAL.SUSP PO (19:49)
[2024-11-03] MEDS: Magnesium Sulfate/D5W 1 GM/100 ML PIGGYBACK IV (20:10)
--- NOTE | 2024-11-03 20:45 | PC.NURSE ---
Pt c/o of persistent n/v upon assuming care of pt at 19:00. Pt's next dose of Zofran wasn't due till 22:38, see MAR. Previous shift AM RN informed this RN during report that the pt had a prolonged QTC. MD Gomez was notified of the situation. EKG and one time dose of comprazine was ordered. EKG was taken first and showed undetermined. MD Gomez was notified of the EKG reading. No new order to recheck the EKG was given to this RN. This RN was given the okay to administered the comprazine w/ good effect, see MAR. Will continue to monitor.
[2024-11-03] MEDS: Prochlorperazine Edisylate 10 MG/2 ML VIAL IVPUSH (20:46)
[2024-11-04] VITALS: BP 125/60; PULSE 45; RESP 18; TEMP 37.8; O2SAT 99
[2024-11-04] MEDS: Lactated Ringers 1,000 ML 100 ML IVCONT ×2 (03:23→13:05)
[2024-11-04 03:55] VITALS: BP 129/87; PULSE 61; RESP 18; TEMP 37.1; O2SAT 97
[2024-11-04] MEDS: ondansetron HCL 4 MG/2 ML VIAL IVPUSH ×2 (05:50→12:06)
[2024-11-04] MEDS: Pantoprazole Sodium 40 MG/10 ML VIAL IVPUSH (05:50)
[2024-11-04 07:30] VITALS: BP 130/68; PULSE 74; RESP 18; TEMP 37.2; O2SAT 97
--- NOTE | 2024-11-04 09:30 | HO.PM.IMPN ---
Subjective Subjective Date of Service: 11/04/24 Interval History: Seen in f/u post ICU care for metabolic encephalopathy related to polysubstance use, required precedex drip in the ICU He has been having some nausea and vomitting, and seen on camera to be sticking finger in his mouth to vomit Physical Exam Vital Signs: Vital Signs: Last Vital Signs Temp 99.0 F 11/04/24 07:30 Pulse 74 11/04/24 07:30 Resp 18 11/04/24 07:30 BP 130/68 11/04/24 07:30 Pulse Ox 97 11/04/24 07:30 O2 Del Method Room Air 11/04/24 07:30 O2 Flow Rate 3 11/02/24 08:46 BMI result Body Mass Index 33.0 General: AO X 3, no acute distress Resp: CTA bilateral CVS: S1,S2,RRR GI: +BS, NT, no distention Skin: No rash Neuro: motor grossly intact Psych: appropriate affect Objective Data Active Medications Bismuth Subsalicylate (Bismuth Subsalicylate Liquid 524 Mg/30 Ml Oral.Susp) 524 mg PO QID PRN PRN Reason: pain abdomen Last Admin: 11/03/24 19:49 Dose: 524 mg Documented By: BRITT Diazepam (Diazepam 10 Mg/2 Ml Cartridge) 5 mg IM Q6H PRN PRN Reason: agitation Last Admin: 11/03/24 20:57 Dose: 5 mg Documented By: BRITT Lactated Ringer's (Lr) 1,000 mls @ 100 mls/hr IVCONT .Q10H JONATHAN Last Admin: 11/04/24 03:23 Dose: 100 mls/hr Documented By: BRITT Ketorolac Tromethamine (Ketorolac Tromethamine 15 Mg/Ml Vial) 15 mg IM Q6H PRN PRN Reason: Pain, Severe (Pain Scale 7-10) Lidocaine (Lidocaine 4 % Patch Adh..Patch) 1 patch TRANSDERMA DAILY [facility]; Protocol Last Admin: 11/03/24 16:50 Dose: Not Given Documented By: SUE Non-Admin Reason: already administered Methadone HCl (Methadone Hcl 20 Mg/2 Ml Oral.Conc) 70 mg PO DAILY JONATHAN Last Admin: 11/03/24 10:42 Dose: 70 mg Documented By: MAGDALENA Co-signed By: MANNIE Nicotine (Nicotine 14 Mg Patch.Td24) 14 mg TRANSDERMA DAILY [facility] Last Admin: 11/03/24 10:22 Dose: 14 mg Documented By: MAGDALENA Olanzapine (Olanzapine 10 Mg Vial) 10 mg IM DAILY PRN PRN Reason: agitation Ondansetron HCl (Ondansetron Hcl 4 Mg/2 Ml Vial) 4 mg IVPUSH Q6H PRN PRN Reason: Nausea and Vomiting Last Admin: 11/04/24 05:50 Dose: 4 mg Documented By: BRITT Pantoprazole Sodium (Pantoprazole Sodium 40 Mg/10 Ml Vial) 40 mg IVPUSH BID@0630,1630 [facility] Last Admin: 11/04/24 05:50 Dose: 40 mg Documented By: BRITT Sodium Chloride (0.9 % Sodium Chloride Flush 3 Ml Syringe) 3 ml IVFLUSH QSHIFT [facility] Last Admin: 11/04/24 01:35 Dose: Not Given Documented By: BRITT Non-Admin Reason: IV Running Sucralfate (Sucralfate Oral Suspension 1 Gm/10 Ml Oral.Susp) 1 gm PO QIDACHS [facility] Last Admin: 11/03/24 20:55 Dose: Not Given Documented By: BRITT Non-Admin Reason: pt vomiting Labs 11/03/24 05:39 11/03/24 05:39 Labs: Laboratory Results - last 24 hr 11/03/24 05:39 Lipase 41 Assessment and Plan (1) Agitation: Status: Acute (2) Delusional disorder: Status: Acute (3) Active substance abuse: Status: Acute Plan 39/m with past medical history of IV drug abuse, delusional disorder was found unresponsive by the bystanders so EMS was called. After receiving Narcan patient became extremely agitated in the ED, for which he got Haldol, Benadryl, diazepam and Zyprexa without much control and symptoms so later started on Precedex drip and MICU was consulted. There is also a questionable history of hematemesis. Symptoms are acute in onset, progressive, worsened with Narcan, improved with Precedex. Acute encephalopathy: Secondary to drug abuse, alcohol levels negative, urine drug screen positive for fentanyl, opiates, methadone, cocaine, marijuana s/p treatement with precedex drip, continue methadone and PRN meds vailium, zyprexa. Addiction med consult Questionable upper GI bleed, probably from MWT from retching and vomitting constantly, H/H has been stable Possibly due to gastritis as patient had some bilious vomiting this morning Continue pantoprazole IV 40 mg b.i.d, on p.r.n. Zofran. Allergic reaction: Patient had allergic reaction to Haldol in the ED, treated with Benadryl. Avoid in future Transaminitis: Hepatitis-C antibodies positive, we will ask the patient if he has had any vaccines Need to be followed up outpatient clinic for treatment if it did not have any vaccines Prophylaxis: SCD, pantoprazole Quality Stroke Does the patient have a stroke diagnosis?: No VTE Prior VTE?: No VTE Risk Level:: Medical - low VTE Device Contraindication: N/A - Device Ordered VTE Drug Contraindication: N/A - Med Ordered
[2024-11-04] MEDS: methADONE HCl 20 MG/2 ML ORAL.CONC 70 MG PO (09:48)
[2024-11-04] MEDS: Sucralfate Oral Suspension 1 GM/10 ML ORAL.SUSP PO ×2 (09:48→12:06)
--- NOTE | 2024-11-04 10:55 | HO.ADDICTCON ---
History of Present Illness Date of Service: 11/04/2024 Chief Complaint: drug overdose Reason for Consult: RAMA, overdose Sources of Information: patient interviewed and chart reviewed HPI Narrative: Patient is a 39 year old male with history of OUD, medically admitted following opioid overdose requiring narcan. Seen in room 444, he is laying in bed, awake, minimal participation in interview. Reporting he feels very nauseous and does not feel like speaking. Reports methadone 70mg via [facility] for about a year States that he had been abstaining from substance use for 4 months, until he used, resulting in overdose. Denies withdrawal sx and states that nausea and vomiting are unrelated to this Requests he be allowed to sleep as he is not feeling well Review of Systems Constitutional: Reports as per HPI Diagnostics Vital Signs (24Hr): Vital Signs - 24 hr 11/03/24 11:00 11/03/24 13:31 11/03/24 16:00 Temperature 97.8 F 97.6 F Pulse Rate 47 L 58 62 Respiratory Rate 12 18 18 Blood Pressure 158/70 H 145/76 H Pulse Oximetry 96 96 99 Oxygen Delivery Method Room Air Room Air Room Air 11/03/24 20:47 11/04/24 00:00 11/04/24 03:55 Temperature 99.0 F 100.1 F 98.7 F Pulse Rate 42 L 45 L 61 Respiratory Rate 16 18 18 Blood Pressure 134/75 125/60 129/87 Pulse Oximetry 99 99 97 Oxygen Delivery Method Room Air Room Air Room Air 11/04/24 07:30 Temperature 99.0 F Pulse Rate 74 Respiratory Rate 18 Blood Pressure 130/68 Pulse Oximetry 97 Oxygen Delivery Method Room Air BMI result Body Mass Index 33.0 Labs 11/03/24 05:39 11/03/24 05:39 Labs: Laboratory Results - last 48 hr 11/02/24 11/02/24 11/02/24 08:40 11:45 18:25 WBC 4.9 RBC 4.59 L Hgb 12.7 L Hct 37.5 L MCV 81.7 MCH 27.7 MCHC 33.9 RDW 14.3 Plt Count 203 MPV 9.5 Immature Gran % (Auto) Neut % (Auto) Lymph % (Auto) Stone % (Auto) Eos % (Auto) Baso % (Auto) Lymph # (Auto) [place] # (Auto) Eos # (Auto) Baso # (Auto) Abs Immat Gran (auto) Absolute Neuts (auto) Absolute Nucleated RBC 0.000 Nucleated RBC % (auto) 0.0 Sodium Potassium Chloride Carbon Dioxide Anion Gap BUN Creatinine Estim Creat Clear Calc Estimated GFR Random Glucose Calcium Magnesium Total Bilirubin AST ALT Alkaline Phosphatase Total Protein Albumin Lipase 25 TSH 0.53 Urine Opiates Screen POSITIVE H Ur Buprenorphine Scrn Not Detected Ur Oxycodone Screen Not Detected Urine Methadone Screen Positive H Urine Fentanyl Screen POSITIVE H Ur Barbiturates Screen Not Detected Ur Phencyclidine Scrn Not Detected Ur Amphetamines Screen Not Detected U Benzodiazepines Scrn POSITIVE H Urine Cocaine Screen POSITIVE H U Marijuana (THC) Screen POSITIVE H Hep Bs Antigen Negative Hep Bs Antibody REACTIVE Hep B Core Total Ab Nonreactive Hepatitis C Ab (EIA) Reactive H 11/02/24 11/03/24 23:32 05:39 WBC 5.0 RBC 4.37 L Hgb 12.2 L 12.2 L Hct 36.5 L 36.3 L MCV 83.1 MCH 27.9 MCHC 33.6 RDW 14.4 Plt Count 188 MPV 9.4 Immature Gran % (Auto) 0.0 Neut % (Auto) 40.7 L Lymph % (Auto) 44.5 H Stone % (Auto) 11.0 Eos % (Auto) 3.0 Baso % (Auto) 0.8 Lymph # (Auto) 2.2 Stone # (Auto) 0.6 Eos # (Auto) 0.2 Baso # (Auto) 0.0 Abs Immat Gran (auto) 0.00 Absolute Neuts (auto) 2.0 Absolute Nucleated RBC 0.000 Nucleated RBC % (auto) 0.0 Sodium 142 Potassium 3.5 Chloride 112 H Carbon Dioxide 23 Anion Gap 11 L BUN 12 Creatinine 0.72 Estim Creat Clear Calc 158.2 Estimated GFR > 60 Random Glucose 97 Calcium 8.0 L D Magnesium 2.2 Total Bilirubin 0.6 AST 67 H ALT 58 H Alkaline Phosphatase 54 Total Protein 5.9 L Albumin 3.1 L Lipase 41 TSH Urine Opiates Screen Ur Buprenorphine Scrn Ur Oxycodone Screen Urine Methadone Screen Urine Fentanyl Screen Ur Barbiturates Screen Ur Phencyclidine Scrn Ur Amphetamines Screen U Benzodiazepines Scrn Urine Cocaine Screen U Marijuana (THC) Screen Hep Bs Antigen Hep Bs Antibody Hep B Core Total Ab Hepatitis C Ab (EIA) Mental Status Exam Mental Status Exam Patient Appearance: Appropriate Level of Consciousness: Awake and Appropriate Patient Behavior: Guarded Affect Description: Flat Speech Pattern: Clear Thought Process: Intact Thought Content: positive for Intact Medications Medications Current Medications Bismuth Subsalicylate (Bismuth Subsalicylate Liquid 524 Mg/30 Ml Oral.Susp) 524 mg PO QID PRN PRN Reason: pain abdomen Last Admin: 11/03/24 19:49 Dose: 524 mg Diazepam (Diazepam 10 Mg/2 Ml Cartridge) 5 mg IM Q6H PRN PRN Reason: agitation Last Admin: 11/03/24 20:57 Dose: 5 mg Lactated Ringer's (Lr) 1,000 mls @ 100 mls/hr IVCONT .Q10H [facility] Last Admin: 11/04/24 03:23 Dose: 100 mls/hr Ketorolac Tromethamine (Ketorolac Tromethamine 15 Mg/Ml Vial) 15 mg IM Q6H PRN PRN Reason: Pain, Severe (Pain Scale 7-10) Lidocaine (Lidocaine 4 % Patch Adh..Patch) 1 patch TRANSDERMA DAILY [facility]; Protocol Last Admin: 11/04/24 09:52 Dose: Not Given Methadone HCl (Methadone Hcl 20 Mg/2 Ml Oral.Conc) 70 mg PO DAILY [facility] Last Admin: 11/04/24 09:48 Dose: 70 mg Nicotine (Nicotine 14 Mg Patch.Td24) 14 mg TRANSDERMA DAILY [facility] Last Admin: 11/04/24 09:52 Dose: Not Given Olanzapine (Olanzapine 10 Mg Vial) 10 mg IM DAILY PRN PRN Reason: agitation Ondansetron HCl (Ondansetron Hcl 4 Mg/2 Ml Vial) 4 mg IVPUSH Q6H PRN PRN Reason: Nausea and Vomiting Last Admin: 11/04/24 05:50 Dose: 4 mg Pantoprazole Sodium (Pantoprazole Sodium 40 Mg/10 Ml Vial) 40 mg IVPUSH BID@0630,1630 [facility] Last Admin: 11/04/24 05:50 Dose: 40 mg Sodium Chloride (0.9 % Sodium Chloride Flush 3 Ml Syringe) 3 ml IVFLUSH QSHIFT [facility] Last Admin: 11/04/24 09:48 Dose: Not Given Sucralfate (Sucralfate Oral Suspension 1 Gm/10 Ml Oral.Susp) 1 gm PO QIDACHS [facility] Last Admin: 11/04/24 09:48 Dose: 1 gm Allergies Allergies Allergy/AdvReac Type Severity Reaction Status Date / Time haloperidol [From Haldol] Allergy Unknown Angioedema, Unverified 11/02/24 23:46 Headache, Dizziness Assessment & Plan Assessment & Plan (1) Opioid use disorder: Status: Acute Code(s): F11.90 - Opioid use, unspecified, uncomplicated Assessment and Plan: methadone has already been restarted, connected to [facility] director of casework department to check in tomorrow AM Total time managing care of this patient today _30___ minutes. PMFSH Past Medical History Medical History Cellulitis Hepatitis C Opiate abuse, continuous Social History Social History Household Members: Unknown / Unable to assess Housing: Unknown / Unable to assess Patient Tobacco Use Status: Tobacco use Unknown Substance Use Type: Heroin Currently Displaying Signs/Symptoms of Drug Intoxication Withdrawal: Yes Advance Directives: No Advance Directives Information Provided: No service: No
[2024-11-04 11:31] VITALS: BP 103/57; PULSE 54; RESP 18; TEMP 36.3; O2SAT 95
[2024-11-04] MEDS: Bismuth Subsalicylate Liquid 524 MG/30 ML ORAL.SUSP PO (12:06)
--- NOTE | 2024-11-04 14:03 | PM.DS ---
DS: Providers Provider Date of Service: 11/04/24 Date of admission: 11/02/24 08:16 Date of discharge: 11/04/24 Primary care physician: None Physician Consults: 11/03/24 13:34 Addiction Medicine Provider Routine Consulting Provider: Addiction Covering Reason for consultation: on methdone , having nausea and vomiting Has provider been notified: No DS: Diagnosis Discharge Diagnosis (1) Opioid use disorder: Status: Acute DS: Summary Hospital Course Hospital Course: admission hpi Chief Complaint: Altered sensorium History is limited as patient is poorly responsive. 39-year-old male with past medical history of IV drug abuse, delusional disorder was found unresponsive by the bystanders so EMS was called. After receiving Narcan patient became extremely agitated in the ED, for which he got Haldol, Benadryl, diazepam and Zyprexa without much control and symptoms so later started on Precedex drip and MICU was consulted. There is also a questionable history of hematemesis. Symptoms are acute in onset, progressive, worsened with Narcan, improved with Precedex. hospital course:Patient was treated with precedex in the ICU and later downgrade to the floor where he continues to c/o of nausea and vomitting. He refused labs one at some point he claimed that he was feeling fine and wanted to leave and left against medical advise. He was awake, alert, and oriented to self, place and time Time Attestation Discharge Coordination Time (in mins): 30 Quality: Safe Use of Opioids Does Pt have an Active Cancer Diagnosis on the Problem List?: No Quality: Stroke Does the patient have a stroke diagnosis?: No Physical Exam Vital Signs: Vital Signs: Last Vital Signs Temp 97.4 F 11/04/24 11:31 Pulse 54 11/04/24 11:31 Resp 18 11/04/24 11:31 BP 103/57 L 11/04/24 11:31 Pulse Ox 95 11/04/24 11:31 O2 Del Method Room Air 11/04/24 11:31 O2 Flow Rate 3 11/02/24 08:46 BMI result Body Mass Index 33.0 General: AO X 3, no acute distress Resp: CTA bilateral CVS: S1,S2,RRR GI: +BS, NT, no distention Skin: No rash Neuro: motor grossly intact Psych: appropriate affect Discharge Plan Discharge Anticipated Discharge Date/Time: 11/04/24 13:32 Patient Disposition: Left Against Medical Advice Discharge Diagnosis: Confusion, agitation Referrals: Physician,Unknown J [Physician] - 1 Week Discharge Medications: Continued methocarbamol 500 mg tablet 500 mg PO QID PRN (Reason: Spasms) clonidine HCl 0.1 mg tablet 0.1 mg PO QID nicotine 14 mg/24 hr patch 24 hour 1 patch topical DAILY PRN (Reason: Nicotine Cravings) nicotine (polacrilex) 2 mg gum 2 mg buccal Q4H PRN (Reason: Nicotine Cravings) gabapentin 800 mg tablet 800 mg PO QID clonazepam 2 mg tablet 1 mg PO BID PRN (Reason: Anxiety) ibuprofen 400 mg tablet 400 mg PO Q6H PRN (Reason: Pain) docusate sodium 100 mg capsule 100 mg PO BID PRN (Reason: Constipation) polyethylene glycol 3350 [Miralax] 17 gram/dose powder 17 g PO DAILY PRN (Reason: Constipation) oxybutynin chloride 5 mg tablet 5 mg PO BID ondansetron 4 mg tablet,disintegrating 4 mg PO Q8H PRN (Reason: Nausea And Vomiting) hydroxyzine pamoate 25 mg capsule 25 mg PO Q6H PRN (Reason: Anxiety) methadone [Methadone Intensol] 10 mg/mL Concentrate 70 mg PO DAILY Discharge Orders: Discharge Order (Routine); Ordered 11/04/24 Ordered By: Maximo Pruett Diet: Advance to usual diet Activity on Discharge: As tolerated Print Language: Occitan Care Plan Goals: recovery from substance use Health Concerns: substance use disorder Plan of Treatment: Avoid ilicit substance use Left AMA Assessment: see above Discharge Date/Time: 11/04/24 14:20
--- NOTE | 2024-11-04 15:27 | MHC.CM.PN ---
Pt left AMA.
== END 2024-11-04 14:20 | disposition left against medical advice (07) | DRG 812 ==
LOC: HO.ED 07:29 → HO.EDOVER 08:24 → HO.ICU 08:49 → HO.IMC 11-03 11:10
PROVIDERS: Physician Assistant Medical; Admitting Provider Internal Medicine Critical Care Medicine; Emergency Provider Emergency Medicine; Visit Provider Internal Medicine
DX: T50.901A Poisoning by unspecified drugs, medicaments and biological substances, accidental (unintentional), initial encounter (principal); G92.8 Other toxic encephalopathy; K22.6 Gastro-esophageal laceration-hemorrhage syndrome; F22 Delusional disorders; Z79.899 Other long term (current) drug therapy
CPT/HCPCS: 36415; 71045; 74018; 80048; 80053; 80076; 80307; 82271; 82565; 83690; 83735; 84100; 84443; 85014; 85018; 85025; 85027; 86704; 86706; 86803; 87340; 93005; 99285; J0737; J1200; J1630; J2354; J2359; J2405; J2470; J2765; J3360; J3475; J3480; J3486; J7120

== ENCOUNTER 2024-11-02 08:16 | Outpatient (BNV) | payer OTHER, SELFPAY | END 2024-11-02 17:49 | PROVIDERS: Admitting Provider Internal Medicine Critical Care Medicine; Emergency Provider Emergency Medicine; Visit Provider Internal Medicine Cardiovascular Disease | DX: I49.9 Cardiac arrhythmia, unspecified (principal) | CPT/HCPCS: 93010 ==

== ENCOUNTER 2024-11-02 08:16 | Outpatient (BNV) | payer OTHER, SELFPAY | END 2024-11-03 17:30 | PROVIDERS: Admitting Provider Internal Medicine Critical Care Medicine; Emergency Provider Emergency Medicine; Visit Provider Specialist | DX: R14.0 Abdominal distension (gaseous) (principal); R10.9 Unspecified abdominal pain | CPT/HCPCS: 74018 ==

== ENCOUNTER 2024-11-02 08:16 | Outpatient (BNV) | payer OTHER, SELFPAY | END 2024-11-03 20:30 | PROVIDERS: Admitting Provider Internal Medicine Critical Care Medicine; Emergency Provider Emergency Medicine; Visit Provider Internal Medicine | DX: I49.9 Cardiac arrhythmia, unspecified (principal) | CPT/HCPCS: 93010 ==

== ENCOUNTER 2024-11-02 08:16 | Outpatient (BNV) | payer OTHER, SELFPAY | END 2024-11-02 11:50 | PROVIDERS: Admitting Provider Internal Medicine Critical Care Medicine; Emergency Provider Emergency Medicine; Visit Provider Specialist | DX: Z03.822 Encounter for observation for suspected aspirated (inhaled) foreign body ruled out (principal) | CPT/HCPCS: 71045 ==

== ENCOUNTER → 2024-11-02 08:16 | Outpatient (BNV) | payer OTHER, SELFPAY | PROVIDERS: Admitting Provider Internal Medicine Critical Care Medicine; Emergency Provider Emergency Medicine; Visit Provider Internal Medicine Critical Care Medicine | DX: F19.10 Other psychoactive substance abuse, uncomplicated (principal); F22 Delusional disorders; R45.1 Restlessness and agitation; K92.2 Gastrointestinal hemorrhage, unspecified | CPT/HCPCS: 99223; 99291 ==

== ENCOUNTER → 2024-11-02 08:16 | Outpatient (BNV) | payer OTHER, SELFPAY | PROVIDERS: Admitting Provider Internal Medicine Critical Care Medicine; Emergency Provider Emergency Medicine; Visit Provider Internal Medicine | DX: R45.1 Restlessness and agitation (principal); F22 Delusional disorders; F19.10 Other psychoactive substance abuse, uncomplicated | CPT/HCPCS: 99232 ==

== ENCOUNTER → 2024-11-02 08:16 | Outpatient (BNV) | payer OTHER, SELFPAY | PROVIDERS: Admitting Provider Internal Medicine Critical Care Medicine; Emergency Provider Emergency Medicine; Visit Provider Nurse Practitioner Psychiatric/Mental Health | DX: F11.90 Opioid use, unspecified, uncomplicated (principal) | CPT/HCPCS: 99221 ==

== ENCOUNTER 2025-04-24 22:21 | Emergency (ER) | payer OTHER, SELFPAY ==
--- NOTE | ~2025-04-24 | XR_ITS ---
CLINICAL HISTORY: sob 1 view chest x-ray Comparison: CR - XR CHEST 1V - 11/02/24 11:51 EDT Findings: No consolidation or effusion. Heart size is normal. No acute fracture. IMPRESSION: 1. No acute findings. This document has been electronically signed by: Bryce Macias MD on 04/25/2025 01:12:11
[2025-04-24 22:33] VITALS: BP 133/85; PULSE 86; RESP 18; TEMP 36.7; O2SAT 98; BMI 25.7
[2025-04-24 23:06] LABS: Hematocrit 39.3 % (42.0-52.0); Hemoglobin 13.5 g/dl (14.0-18.0); Imm Gran Abs Auto 0.01 X10*3/uL (0.00-0.03); Imm Gran Pct Auto 0.1 % (0.0-0.4); Lymphocytes Absolute Auto 1.9 X10*3/uL (1.2-4.9); MANUAL DIFF FLAG NO; Mean Corpuscular HGB Conc 34.4 g/dl (31.0-36.0); Mean Corpuscular Hemoglobin 27.6 pg (27.0-33.0); Mean Corpuscular Volume 80.4 fL (80.0-98.0); NRBC Abs Auto 0.000 X10*3/uL (0.0-0.012); NRBC Pct Auto 0.0 /100WBC (0.0-0.2); Platelet Count 204 X10*3/uL (160-400); Red Blood Count 4.89 X10*6/uL (4.60-5.80); White Blood Count 7.0 X10*3/uL (4.8-10.8)
[2025-04-24 23:13] VITALS: BP 103/60; PULSE 74; RESP 18; TEMP 36.4; O2SAT 95
[2025-04-24 23:22] LABS: Alanine Aminotransferase 101 U/L (0-40); Albumin Level 4.2 g/dL (3.5-5.0); Alkaline Phosphatase 78 U/L (39-117); Anion Gap 12 (12-20); Aspartate Amino Transferase 182 U/L (5-37); Blood Urea Nitrogen 16 mg/dL (9-16); COVID-19 Test Negative (Negative); Calcium 8.7 mg/dL (8.4-10.2); Carbon Dioxide 23 mmol/L (22-29); Chloride 105 mmol/L (96-108); Creatinine Clr Calc Pharmacy 142.2; Estimated Glomerular Filt Rate > 60; IDNOW Serial# 55D5AD1C; IDNOW Serial# 58CA691E; Influenza B2 Negative (Negative); Lipase 21 U/L (8-78); Potassium 3.4 mmol/L (3.3-5.1); Sodium 137 mmol/L (135-145); Total Protein 7.1 g/dL (6.5-8.0)
--- NOTE | 2025-04-25 00:04 | ED.GENADULT ---
HPI - General Adult General Chief complaint: General Medical Stated complaint: knees and feet swelling (?infection) Time Seen by Provider: 04/24/25 23:27 Source: patient Limitations: no limitations History of Present Illness ED Provider: Olena Thomas PA-C HPI narrative: 40M with past medical history of opioid use disorder on methadone maintenance and hepatitis C presents to ED for general malaise for the last 3 days. Patient complaining of subjective fever/chills, pain/swelling of the knees/feet, dyspnea, frequent urination and cloudy urine. Vitals stable, patient not meeting sepsis criteria. Patient is homeless. Current IVDU, approximately 4-5 bags of fentanyl daily, last use was 4pm. States he follows with [facility] for methadone maintenance, currently at 130mg. Related Data Home Medications ?Medication ?Instructions ?Recorded ?Confirmed clonazepam 2 mg tablet 1 mg PO BID PRN Anxiety 11/02/24 11/02/24 clonidine HCl 0.1 mg tablet 0.1 mg PO QID 11/02/24 docusate sodium 100 mg capsule 100 mg PO BID PRN Constipation 11/02/24 11/02/24 gabapentin 800 mg tablet 800 mg PO QID 11/02/24 11/02/24 hydroxyzine pamoate 25 mg capsule 25 mg PO Q6H PRN Anxiety 11/02/24 11/02/24 ibuprofen 400 mg tablet 400 mg PO Q6H PRN Pain 11/02/24 11/02/24 methadone 10 mg/mL oral 130 mg PO DAILY 11/02/24 11/02/24 concentrate (Methadone Intensol) methocarbamol 500 mg tablet 500 mg PO QID PRN Spasms 11/02/24 nicotine (polacrilex) 2 mg gum 2 mg buccal Q4H PRN Nicotine 11/02/24 Cravings nicotine 14 mg/24 hr daily 1 patch topical DAILY PRN Nicotine 11/02/24 transdermal patch Cravings ondansetron 4 mg disintegrating 4 mg PO Q8H PRN Nausea And Vomiting 11/02/24 11/02/24 tablet oxybutynin chloride 5 mg tablet 5 mg PO BID 11/02/24 polyethylene glycol 3350 17 17 g PO DAILY PRN Constipation 11/02/24 11/02/24 gram/dose oral powder (Miralax) Allergies Allergy/AdvReac Type Severity Reaction Status Date / Time haloperidol (From Haldol) Allergy Unknown Angioedema, Verified 04/24/25 22:37 Headache, Dizziness Review of Systems Review of Systems: Yes all other systems are reviewed and are negative Constitutional: Constitutional: Reports body ache(s), Reports chills, Reports excessive sweating and Reports malaise Cardiovascular: Cardiovascular: Denies chest pain and Reports dyspnea Respiratory: Respiratory: Reports dyspnea Gastrointestinal: Gastrointestinal: Denies abdominal pain Musculoskeletal: Musculoskeletal: Reports myalgias Psychiatric: Psychiatric: Reports hopelessness Endocrine: Endocrine: Reports excessive sweating PMFSH Past Medical History Attestation statement: The following information was validated with the patient. Medical History Cellulitis Hepatitis C Opiate abuse, continuous Social History Social History Household Members: Unknown / Unable to assess Housing: Unknown / Unable to assess Patient Tobacco Use Status: Tobacco use Unknown Smoked in Last 30 Days: Yes Use of substances other than those prescribed or required for medical reasons: Yes Substance Use Type: Crack/Cocaine, Heroin and Marijuana Substance Use Frequency: Daily Advance Directives: No Advance Directives Information Provided: Yes Do you have a plan to hurt others: No Plan service: No Physical Exam ED Vital Signs: Vital Signs - 24 hr 04/24/25 22:33 04/24/25 23:13 04/25/25 01:47 Temperature 98.1 F 97.6 F 98.1 F Pulse Rate 86 74 63 Respiratory Rate 18 18 16 Blood Pressure 133/85 103/60 97/53 L Pulse Oximetry 98 95 97 Oxygen Delivery Method Room Air Room Air Room Air 04/25/25 05:49 04/25/25 08:44 Temperature 97.8 F 97.8 F Pulse Rate 60 57 Respiratory Rate 14 11 L Blood Pressure 107/63 108/69 Pulse Oximetry 96 99 Oxygen Delivery Method Room Air Room Air BMI result Body Mass Index 25.7 Const Other: Alert, anxious, tearful appears distressed General: cooperative, alert, awake, poor hygiene and tired appearing Nutritional Appearance: average body habitus Orientation/consciousness: patient oriented x3 Resp Other: Lungs clear to auscultation no wheezing Effort & Inspection: normal respiratory effort Auscultation: clear to auscultation bilaterally Cardio Other: Normal peripheral perfusion Rate: regular rate Rhythm: regular rhythm Skin Other: Warm dry no rash Neuro General: patient oriented x3, gait normal, no focal motor deficits and CN's II-XI intact bilaterally Psych Other: Cooperative, anxious, tearful Appearance: disheveled Affect: Anxious affect present Course Reevaluation(s) Reevaluation #1: Speaking with Erin from the care team, the patient apparently was just discharged from [facility], he in turn could not get into the [facility], he then started using again. The patient does not want therapy or counseling, he does want to get back into detox and he needs help with the housing. A referral has been made to [facility] our recovery now, this facility can help with counseling, therapy, detox and housing. The plan is to hold the patient until the morning, the day team we will be able to reach out to multiple facilities to help with the detox, housing etcetera. Time: 03:35 Reevaluation #2: Time: 04:07 Date: 04/25/25 Provider: SRAVAN Carrero Patient in physician observation for psychiatric evaluation.? No acute events reported overnight. No current complaints. VS stable.? Patient is in bed search status/pending CARE team evaluation. Will continue to monitor. Time: 04:07 Reevaluation #3: Time: 05:35 Date: 04/25/25 Provider: Myron Kaplan MD Patient in physician observation for psychiatric evaluation.? No acute events reported overnight. No current complaints. VS stable the patient was seen by CARE team for recovery evaluation. patient will be a detox bed search for opiates and cocaine.Will continue to monitor. Medications Administered Discontinued Medications Generic Name Dose Route Start Last Admin Trade Name Eleazar PRN Reason Stop Dose Admin Methadone HCl 130 mg 04/25/25 11:32 04/25/25 11:42 Methadone Hcl 20 Mg/2 Ml Oral.Conc PO 04/25/25 11:33 130 mg ONCE ONE Administration Medical Decision Making Medical Decision Making MDM Narrative: 40M with past medical history of opioid use disorder on methadone maintenance and hepatitis C presents to ED for general malaise for the last 3 days. Patient complaining of subjective fever/chills, pain/swelling of the knees/feet, dyspnea, frequent urination and cloudy urine. Vitals stable, patient not meeting sepsis criteria. Patient is homeless. Current IVDU, approximately 4-5 bags of fentanyl daily, last use was 4pm. States he follows with [facility] for methadone maintenance, currently at 130mg. Patient verbalizes that he ?I can not keep doing this, I keep shooting up,?. When asked if he has thoughts of self-harm, the patient can not look me in the eye, he is tearful crying shaking his head. I've considered the following diagnoses: sepsis, septic arthritis, gout, UTI, pyelonephritis. Not currently meeting sepsis criteria, vitals stable no leukocytosis. UA pending. Mental health crisis with recent family passing. PE, pneumothorax, pneumonia. Plan: CARE team referral in my opinion he is expressing vague thoughts of SI, I feel he requires excellence coach as well. I've reviewed the following tests: viral panel negative, CBC mild anemia no leukocytosis, CMP showing elevated liver enzymes, elevated ESR/CRP, ethanol less than 10, U tox pending Differential Diagnosis Differential Diagnoses: The differential diagnosis associated with the presentation includes See medical decision-making Admission/Observation Consideration of admission/observation: Escalation of care including admission/observation considered Not applicable Lab Data 04/24/25 22:59 04/24/25 22:59 Labs: Lab Results 04/24/25 04/25/25 04/25/25 Range/Units 22:59 00:14 10:41 WBC 7.0 (4.8-10.8) X10*3/uL RBC 4.89 (4.60-5.80) X10*6/uL Hgb 13.5 L (14.0-18.0) g/dl Hct 39.3 L (42.0-52.0) % MCV 80.4 (80.0-98.0) fL MCH 27.6 (27.0-33.0) pg MCHC 34.4 (31.0-36.0) g/dl RDW 13.3 (11.0-16.0) % Plt Count 204 (160-400) X10*3/uL MPV 9.4 (9.4-12.4) fL Immature Gran % (Auto) 0.1 (0.0-0.4) % Neut % (Auto) 57.6 (45-73) % Lymph % (Auto) 26.9 (20-40) % [place] % (Auto) 12.9 H (2-11) % Eos % (Auto) 1.6 (0-4) % Baso % (Auto) 0.9 (0-2) % Lymph # (Auto) 1.9 (1.2-4.9) X10*3/uL [place] # (Auto) 0.9 (0.1-1.2) X10*3/uL Eos # (Auto) 0.1 (0.0-0.4) X10*3/uL Baso # (Auto) 0.1 (0.0-0.2) X10*3/uL Abs Immat Gran (auto) 0.01 (0.00-0.03) X10*3/uL Absolute Neuts (auto) 4.0 (2.0-8.3) x10*3/uL Absolute Nucleated RBC 0.000 (0.0-0.012) X10*3/uL Nucleated RBC % (auto) 0.0 (0.0-0.2) /100WBC ESR 8 (0-15) MM/HR Sodium 137 (135-145) mmol/L Potassium 3.4 (3.3-5.1) mmol/L Chloride 105 (96-108) mmol/L Carbon Dioxide 23 (22-29) mmol/L Anion Gap 12 (12-20) BUN 16 (9-16) mg/dL Creatinine 0.72 (0.5-1.4) mg/dL Estim Creat Clear Calc 142.2 Estimated GFR > 60 Random Glucose 116 H (60-115) mg/dL Calcium 8.7 D (8.4-10.2) mg/dL Total Bilirubin 1.0 (0.0-1.0) mg/dL Direct Bilirubin 0.3 (0.0-0.5) mg/dL AST 182 H (5-37) U/L ALT 101 H (0-40) U/L Alkaline Phosphatase 78 (39-117) U/L C-Reactive Protein 3.29 H (< or = 0.50) mg/dL Total Protein 7.1 (6.5-8.0) g/dL Albumin 4.2 (3.5-5.0) g/dL Lipase 21 (8-78) U/L Urine Color Yellow Urine Appearance Clear Urine pH 5.5 (5.0-9.0) Ur Specific [place] 1.020 (1.005-1.025) Urine Protein Negative (Neg-Trace) mg/dL Urine Glucose (UA) Negative (Negative) mg/dL Urine Ketones Negative (Negative) mg/dL Urine Blood Negative (Negative) Urine Nitrite Negative (Negative) Ur Leukocyte Esterase Negative (Negative) Urine Opiates Screen POSITIVE H (Not Detect) Ur Buprenorphine Scrn Not Detected (Not Detect) ng/mL Ur Oxycodone Screen Not Detected (Not Detect) ng/mL Urine Methadone Screen Positive H (Not Detect) ng/mL Urine Fentanyl Screen POSITIVE H (Not Detect) Ur Barbiturates Screen Not Detected (Not Detect) Ur Phencyclidine Scrn Not Detected (Not Detect) Ur Amphetamines Screen Not Detected (Not Detect) U Benzodiazepines Scrn Not Detected (Not Detect) Urine Cocaine Screen POSITIVE H (Not Detect) U Marijuana (THC) Screen POSITIVE H (Not Detect) Ethyl Alcohol < 10 mg/dL COVID-19 (SUZANNE) Negative (Negative) COVID-19 Clin Com See Note Influenza Type A (ASIA) Negative (Negative) Influenza Type B (ASIA) Negative (Negative) Influenza A & B Note See Note Discharge Plan Discharge Clinical Impression: Polysubstance abuse, Emotional stress Patient Disposition: Xfer Other Transfer Details: Detox program Additional Instructions: You were evaluated by our care team. You were going to a detox program. Please follow the care team instructions. Continue taking medications as prescribed by your providers. You were seen in our Emergency Department today for treatment of a behavioral health issue. It is important after your visit that you follow up with either your behavioral health provider or a primary care doctor within 7 days.? If you have trouble finding a therapist you can reach out to [address] [phone] The National Suicide and Crisis Lifeline can be reached 7 days a week 24 hours a day.? Call 988 to speak with someone.? Return for any worsening symptoms or concerns such as thoughts of self harm or harm to others. Please call 911 if you feel your mental health is worsening.? Prescriptions: No Action methocarbamol 500 mg tablet 500 mg PO QID PRN (Reason: Spasms) clonidine HCl 0.1 mg tablet 0.1 mg PO QID nicotine 14 mg/24 hr patch 24 hour 1 patch topical DAILY PRN (Reason: Nicotine Cravings) nicotine (polacrilex) 2 mg gum 2 mg buccal Q4H PRN (Reason: Nicotine Cravings) gabapentin 800 mg tablet 800 mg PO QID clonazepam 2 mg tablet 1 mg PO BID PRN (Reason: Anxiety) ibuprofen 400 mg tablet 400 mg PO Q6H PRN (Reason: Pain) docusate sodium 100 mg capsule 100 mg PO BID PRN (Reason: Constipation) polyethylene glycol 3350 [Miralax] 17 gram/dose powder 17 g PO DAILY PRN (Reason: Constipation) oxybutynin chloride 5 mg tablet 5 mg PO BID ondansetron 4 mg tablet,disintegrating 4 mg PO Q8H PRN (Reason: Nausea And Vomiting) hydroxyzine pamoate 25 mg capsule 25 mg PO Q6H PRN (Reason: Anxiety) methadone [Methadone Intensol] 10 mg/mL Concentrate 130 mg PO DAILY Interventions: ED Discharge Assessment Last Done: 04/25/25 12:40 Discharge Date/Time: 04/25/25 12:47 Print Language: Stateless
--- NOTE | 2025-04-25 01:16 | PC.NURSE ---
executive relations specialist noticed that care team referral was placed for pt for vague si . This was not communicated with RN. Pt nor MD mentioned this. Because of this there was a delay in place change roof bolter. cloth covered helmet puller being done now- Pt moved to [address]- belongings secured. RN to give report to new RN.
--- OUTSIDE RECORDS SUMMARY | 2025-04-25 01:17 | XMS_ITS | Clinical Summary ---
Author Organization [facility] Address [address] [place] [address] Care Team Providers Care Electrical Equipment Technician Name Role Phone Cristina Bates MD Primary Care Provider [phone] Annika Woods Unavailable Unavailable Allergies Active Allergy Reactions Criticality Noted Date Comments Haloperidol 02/06/2023 Medications cloNIDine (Catapres) 0.1 MG tabletIndicatio ns:Opiate withdrawal (CMS/HCC) (HCC) Take 1 tablet (0.1 mg) by mouth every 6 (six) hours if needed (for anxiety) for up to 28 days. 112 tablet 5 Active hydrOXYzine pamoate (Vistaril) 25 MG capsuleIndicati ons:Opiate withdrawal (CMS/HCC) (HCC) Take 1 capsule (25 mg) by mouth every 6 (six) hours if needed for anxiety for up to 28 days. 112 capsule 5 Active methocarbamol (Robaxin) 500 MG tabletIndicatio ns:Opiate withdrawal (CMS/HCC) (HCC) Take 1 tablet (500 mg) by mouth every 6 (six) hours if needed (restless legs) for up to 5 days. 20 tablet 5 Active clonazePAM (KlonoPIN) 2 MG tabletIndicatio ns:Anxiety Take 1 tablet (2 mg) by mouth if needed in the morning and at bedtime for anxiety (or withdrawal symptoms) for up to 14 days. 28 tablet 5 Active gabapentin (Neurontin) 800 MG tabletIndicatio ns:Chronic pain due to trauma Take 1 tablet (800 mg) by mouth every 6 (six) hours if needed (Anxiety) for up to 14 days. 42 tablet 5 Active ARIPiprazole (Abilify) 5 MG tabletIndicatio ns:Irritability and anger Take 1 tablet (5 mg) by mouth Once per day for 14 days. 14 tablet 5 Active oxybutynin (Ditropan) 5 MG tablet Take 1 tablet (5 mg) by mouth 2 times daily. 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 (CMS /HCC) 02/06/2023 Right eye injury 02/06/2023 Immunizations Immunization Administration Dates Next Due Hep A, Unspecified 01/21/2018 Hep B, Unspecified 02/18/2018,01/21/2018 Td (adult), unspecified 08/16/2001 Tdap 07/29/2019 Family History Medical History Relation Name Comments Bipolar disorder Brother Heart attack Father Alcohol abuse Mother Drug abuse Sister Relation Name Status Comments Brother Alive Father Mother Sister Alive Social History Tobacco Use Types Packs/Day Years Used Date Smoking Tobacco: Never Assessed Sex and Gender Information Value Date Recorded Sex Assigned at Male 05/16/2022 10:24 AM EDT Legal Sex Male 10:24 AM EDT Gender Identity Male 01/27/2023 11:50 AM EDT Sexual Orientation Straight 01/27/2023 11 :50 AM EDT Last Filed Vital Signs Vital Sign Reading Time Taken Comments Blood Pressure 142/96 02/27/2023 3:18 PM EDT Pulse 74 02/27/2023 3:18 PM EDT Temperature - - Respiratory Rate 18 02/27/2023 3:18 PM EDT Oxygen Saturation - - Inhaled Oxygen Concentration - - Weight 88.3 kg (194 lb 9.6 oz) 02/27/2023 3:18 P M EDT Height 177.8 cm (5' 10 ) 02/27/2023 3:18 PM EDT Body Mass Index 27.92 02/27/2023 3:18 PM EDT Plan of Treatment Health Maintenance Due Date Last Done Comments Depression Screening 1986 HIV Screening 1986 Lipid Panel 1986 SDOH Screening 1986 Disability Screening 1986 Alcohol/Substance Use Screening 1998 Tobacco Screening 1998 Family Planning (PISQ) 2001 HPV Vaccines (1 - Male 3-dos e series) 2001 Pneumococcal Vaccine: Pediatrics (0 to 5 Years) and At-Risk Patients (6 to 49) Years (1 of 2 - PCV) 2005 Hepatitis A Vaccines (2 of 2 - Risk 2-dose series) 07/24/2018 01/21/2018 Hepatitis B Vaccines (3 of 3 - 19+ 3-dose series) 07/24/2018 02/18/2018, 01/21/2018 COVID-19 Vaccine (1 - 2023-2 5 season) 2025 Influenza Vaccine (#1) 2025 DTaP/Tdap/Td Vaccines (3 - T d or Tdap) 07/29/2029 07/29/2019, 08/16/2001 Zoster Vaccines (1 of 2) 01/29/2036 RSV Patients and Patients Aged 60 years or older (1 - 1-dose 75+ series) 2061 HIB Vaccines Aged Out No longer eligi ble based on patient's age to complete this topic IPV Vaccines Aged Out No longer eligi ble based on patient's age to complete this topic Meningococcal B Vaccine Aged Out No l onger eligible based on patient's age to complete this topic Meningococcal Vaccine Aged Out No samy jerrod eligible based on patient's age to complete this topic RSV under 20 months Aged Out No longe r eligible based on patient's age to complete this topic Rotavirus Vaccines Aged Out No longer eligible based on patient's age to complete this topic Insurance [facility] C[facility] Care Teams Electrical Equipment Technician Relationship Specialty Start Date End Date Cristina Bates MD [address] [place] [address] PCP - General Family Medicine 01/20/23 Annika Woods Health Navigator Financial Counseling [facility] Services 10/24/24
--- OUTSIDE RECORDS SUMMARY | 2025-04-25 01:17 | XMS_ITS | Encounter Summary ---
Author Organization [facility] Address [address] [facility] [address] [facility] [address] [place] [address] Care Team Providers Care Telemedicine Physician Name Role Phone Cristina Bates MD Primary Care Provider [phone] Annika Woods Unavailable Unavailable Encounter Details Date Type Department Care Team (Late st Contact Info) Description 06/02/2023 Orders Only [place] [facility] MED[facility] [address] [place] [address] Cristina Bates MD [address] [place] [address] Social History Tobacco Use Types Packs/Day Years Used Date Smoking Tobacco: Never Assessed Sex and Gender Information Value Date Recorded Sex Assigned at Male 05/16/2022 10:24 AM EDT Legal Sex Male 10:24 AM EDT Gender Identity Male 01/27/2023 11:50 AM EDT Sexual Orientation Straight 01/27/2023 11 :50 AM EDT documented as of this encounter Plan of Treatment Not on file documented as of this encounter Visit Diagnoses Not on filedocumented in this encounter Care Teams Telemedicine Physician Relationship Specialty Start Date End Date Cristina Bates MD [address] [place] [address] PCP - General Family Medicine 01/20/23 Annika Woods Health Navigator [facility] 10/24/24 documented as of this encounter
--- NOTE | 2025-04-25 01:30 | PC.NURSE ---
inspector plating Raisa, gave me report, pt denies have any SI plan, vague SI statement, pt requesting to sleep at this time.
--- NOTE | 2025-04-25 01:43 | PC.NURSE ---
private branch exchange repairer done with security. pts belongings placed on shelf 3.
[2025-04-25 01:47] VITALS: BP 97/53; PULSE 63; RESP 16; TEMP 36.7; O2SAT 97
--- NOTE | 2025-04-25 01:48 | PC.NURSE ---
pt place on bed side monitor. low bp report to provider.
[2025-04-25 05:49] VITALS: BP 107/63; PULSE 60; RESP 14; TEMP 36.6; O2SAT 96
[2025-04-25 08:44] VITALS: BP 108/69; PULSE 57; RESP 11; TEMP 36.6; O2SAT 99
--- NOTE | 2025-04-25 08:46 | PC.NURSE ---
Pt has been sleeping. Reports that he feels terrible, sweating. Bilateral knee pain. Asking for something to drink. Gets methadone from [facility].
--- NOTE | 2025-04-25 09:10 | MHC.CARE ---
faxed to [facility] at 0900
--- NOTE | 2025-04-25 09:20 | PC.NURSE ---
Per Kristi LYNN at [facility], pt last dosed there on 04/12/25 with 130mg. Received a single take home dose for 04/13/25. Pt then went to [facility].
--- NOTE | 2025-04-25 09:52 | PC.NURSE ---
Addendum entered by Marley Caceres RN 04/25/25 09:53: Dinah Tomas [phone] Original Note: Per Mamta Black LPN last dose 04/22/25 Methadone 130mg.
--- NOTE | 2025-04-25 10:36 | HE.PHANOTE ---
methadone confirmation form received patient takes 130mg from [facility]. Last dose 04/22
[2025-04-25 10:51] LABS: Appearance Urine Clear; Glucose Urine UA Negative (Negative); PH 5.5 (5.0-9.0); Specific Gravity - Urine 1.020 (1.005-1.025)
[2025-04-25 11:20] LABS: Cannabinoid Screen Urine POSITIVE (Not Detect)
[2025-04-25] MEDS: methADONE HCl 20 MG/2 ML ORAL.CONC 130 MG PO (11:42)
[2025-04-25 12:40] VITALS: BP 108/69; PULSE 57; RESP 11; TEMP 36.6; O2SAT 99
== END 2025-04-25 12:47 | disposition other institution (70) ==
PROVIDERS: Physician Assistant Medical; Emergency Provider Emergency Medicine
DX: R53.1 Weakness (principal); Z73.3 Stress, not elsewhere classified; F19.20 Other psychoactive substance dependence, uncomplicated; B18.2 Chronic viral hepatitis C
CPT/HCPCS: 71045; 80048; 80076; 80307; 81003; 83690; 85025; 85652; 86140; 87502; 87635; 99284; S9485

== ENCOUNTER → 2025-04-25 00:02 | Outpatient (BNV) | payer OTHER, SELFPAY | PROVIDERS: Emergency Provider Emergency Medicine; Visit Provider Radiology Diagnostic Radiology | DX: R06.02 Shortness of breath (principal) | CPT/HCPCS: 71045 ==